=== PATIENT | male | born 1950 | race Caucasian/White ===

== ENCOUNTER 2018-08-03 10:52 | Inpatient (IN) | payer OTHER ==
--- NOTE | 2018-08-03 11:47 | ED ---
Lower Extremity - HPI Summary HPI Summary: Patient is a 68 y/o M w/ c/o left leg pain after falling from a six foot ladder. Per EMS, patient was 2 steps up from the ground. Patient reports that he was cutting some branches with a saw, tried to take a couple of steps up the ladder, leaned back too far and fell. EMS reports patient's left leg was externally rotated 90 degrees upon arrival. Patient arrived with left leg splinted, no open fracture. Leg is noted to be bruised and swollen. PMHx of stroke, DC is denied, patient is adopted. He denies the need for pain medication. Patient denies fever, chills, TORRES, ear pain, sore throat, blurred vision, double vision, neck pain, CP, SOB, ABD pain, back pain, dysuria, hematuria, blood in the stool, diarrhea, vomiting, anxiety and depression. On triage, pain is rated 7/10, nothing is noted to aggravate/alleviate Sx. Home medications and allergies are reviewed. - History of Current Complaint Chief Complaint: EDExtremityLower Stated Complaint: LT LEG INJURY Hx Obtained From: Patient Mechanism Of Injury: Fall From Height Of: - two ladder rungs off the ground Onset of Pain: Prior to Arrival Onset/Duration: Still Present Severity Currently: Severe - 7/10 Pain Intensity: 7 Pain Scale Used: 0-10 Numeric - 7/10 Timing: Constant Location: Is Discrete @ - left leg Associated Signs And Symptoms: Positive: Swelling, Bruising Aggravating Factor(s): Nothing Alleviating Factor(s): Nothing - Allergies/Home Medications Allergies/Adverse Reactions: Allergies Allergy/AdvReac Type Severity Reaction Status Date / Time No Known Allergies Allergy Verified 08/03/18 11:01 Home Medications: Home Medications NK [No Home Medications Reported] 08/03/18 [History Confirmed 08/03/18] PMH/Surg Hx/FS Hx/Imm Hx Cardiovascular History: Denies: Hx Myocardial Infarction Neurological History: Denies: Hx CVA Infectious Disease History: No Infectious Disease History: Denies: Traveled Outside the [place] in Last 30 Days - Family History Known Family History: Positive: Unknown - adopted - Social History Alcohol Use: Daily Substance Use Type: Reports: None Smoking Status (MU): Current Every Day Smoker Review of Systems Negative: Fever, Chills Positive: Other - NEGATIVE: double vision. Negative: Blurred Vision Negative: Sore Throat, Ear Ache Negative: Chest Pain Negative: Cough Negative: Abdominal Pain, Vomiting, Diarrhea Positive: other - NEGATIVE: blood in stool . Negative: dysuria, hematuria Positive: Edema - left leg , Other - left leg pain Positive: Bruising - left leg Negative: Headache Negative: Anxious, Depressed All Other Systems Reviewed And Are Negative: No Physical Exam - Summary Physical Exam Summary: Appearance: Alert, conversive, nontoxic appearing Skin: Warm, dry, no mottling, no rashes, no contusions HEENT: EOMI, PERRL, moist mucous membranes Neck: No masses on the neck, supple Respiratory: Clear to auscultation, breath sounds present, no rales, no rhonchi , no wheezes Cardiovascular: RRR, pulses are symmetrical in both lower and upper extremities Abdomen: Soft, non-tender Bowel Sounds: Present Musculoskeletal: No CVA tenderness, swelling at left lower leg, bruising to anterior ku, good pulses, good cap refill. inability to lift left leg, FROM at left ankle Neurological: A&Ox3, CN II-XII Intact, moving all extremities symmetrically Psychiatric: Normal affect and mood Triage Information Reviewed: Yes Vital Signs On Initial Exam: Initial Vitals Temp Pulse Resp BP Pulse Ox 97.5 F 59 20 144/82 98 08/03/18 10:56 08/03/18 10:56 08/03/18 10:56 08/03/18 10:56 08/03/18 10:56 Vital Signs Reviewed: Yes Diagnostics - Vital Signs Vital Signs Temp Pulse Resp BP Pulse Ox 08/03/18 10:56 97.5 F 59 20 144/82 98 - Laboratory Result Diagrams: 08/03/18 13:44 08/03/18 13:44 Lab Statement: Any lab studies that have been ordered have been reviewed, and results considered in the medical decision making process. - Radiology left ankle x-ray Radiology Interpretation Completed By: Radiologist Summary of Radiographic Findings: IMPRESSION: NO EVIDENCE FOR FRACTURE. THIS REPORT WAS REVIEWED BY ED PHYSICIAN. LEFT KNEE X-RAY Radiology Interpretation Completed By: Radiologist Summary of Radiographic Findings: IMPRESSION: 1. COMMINUTED DISPLACED INTRA- ARTICULAR FRACTURE OF THE PROXIMAL TIBIA. 2. OBLIQUE COMMINUTED SLIGHTLY DISPLACED FRACTURE OF THE PROXIMAL FIBULA. THIS REPORT WAS REVIEWED BY ED PHYSICIAN. LEFT FEMUR X-RAY Radiology Interpretation Completed By: Radiologist Summary of Radiographic Findings: IMPRESSION: No fracture of the left hip or pelvis is noted. THIS REPORT WAS REVIEWED BY ED PHYSICIAN. HIP/PELVIS X-RAY Radiology Interpretation Completed By: Radiologist Summary of Radiographic Findings: IMPRESSION: No fracture of the left hip or pelvis is noted. THIS REPORT WAS REVIEWED BY ED PHYSICIAN. PELVIS X-RAY Radiology Interpretation Completed By: Radiologist Summary of Radiographic Findings: IMPRESSION: No fracture of the pelvis is noted. THIS REPORT WAS REVIEWED BY ED PHYSICIAN. LLE x-ray Radiology Interpretation Completed By: Radiologist Summary of Radiographic Findings: IMPRESSION: COMMINUTED DISPLACED INTRA- ARTICULAR FRACTURE OF THE PROXIMAL TIBIA AND. OBLIQUE COMMINUTED DISPLACED FRACTURE OF THE PROXIMAL FIBULA PREVIOUSLY DESCRIBED. NO. ADDITIONAL FRACTURES ARE SEEN. THIS REPORT WAS REVIEWED BY ED PHYSICIAN. CXR Radiology Interpretation Completed By: Radiologist Summary of Radiographic Findings: cardiomegaly with no evidence of active cardiopulmonary disease, this report was reviewed by ED physician. - EKG 1310 Cardiac Rate: Bradycardia - rate of 53 BPM EKG Rhythm: Sinus Bradycardia Summary of EKG Findings: prolonged CT, prolonged QRS, normal QTC, nonspecific ST -T waves changes noted, depression in v5, v6 and lead 1 and avf. Re-Evaluation - Re-Evaluation First Eval Re-Evaluation Time: 12:52 Comment: Discussed results of x-rays with patient as well as need for surgery. is now present in ED. reports PMHx of COPD in patient. Patient and are from [place], they are agreeable with patient having surgery at [facility]. reports collar bone fracture and skull fracture years ago. Lower Extremity Course/Dx - Course Course Of Treatment: Patient is a 68 y/o M w/ c/o left leg pain after falling from a six foot ladder. Per EMS, patient was 2 steps up from the ground. Patient reports that he was cutting some branches with a saw, tried to take a couple of steps up the ladder, leaned back too far and fell. EMS reports patient 's left leg was externally rotated 90 degrees upon arrival. Patient arrived with left leg splinted, no open fracture. Leg is noted to be bruised and swollen. On physical exam, patient is noted to have swelling at left lower leg, bruising to anterior ku, good pulses, good cap refill. inability to lift left leg, FROM at left ankle. During ED course, patient received fluids and dilaudid 1 mg. UA negative. Labs showed glucose 120, calcium 8.5, INR 1.08, WBC 12.7, RBC 3.18. Multiple x-rays were done, LLE X-RAY, PER RADIOLOGIST, SHOWED COMMINUTED DISPLACED INTRA-ARTICULAR FRACTURE OF THE PROXIMAL TIBIA AND. OBLIQUE COMMINUTED DISPLACED FRACTURE OF THE PROXIMAL FIBULA PREVIOUSLY DESCRIBED. NO. ADDITIONAL FRACTURES ARE SEEN. No ankle, hip, pelvis fracture is noted on x-rays. CXR showed cardiomegaly with no evidence of active cardiopulmonary disease. EKG showed sinus bradycardia with rate of 53 BPM, prolonged CT, prolonged QRS, normal QTC, nonspecific ST-T waves changes noted, depression in v5, v6 and lead 1 and avf. 1252 - Discussed results of x-rays with patient as well as need for surgery. is now present in ED. reports PMHx of COPD in patient. Patient and are from [place], they are agreeable with patient having surgery at [facility]. reports collar bone fracture and skull fracture years ago. 1255 - Dr. Valladares, extension course counselor ortho, was attempted to be contacted, he is in surgery, will call back. 1338 - Discussed patient's case with Dr. Nova, Dr. Nova agrees to accept patient for admission. 1401 - Dr. Valladares called back. He notes that patient has a complicated fracture, he will see if any of his partners will take patient's case. 1407 - Dr. Valladares states that Dr. Sevilla will takes the patient's case and that patient should be placed on NPO after midnight. Posterior fiberglass splint placed on Lt LE by ANA Jackman. Dx of closed fracture of proximal end of tibia and fibia. - Diagnoses Provider Diagnoses: Closed fracture of proximal end of tibia and fibula - Physician Notifications Discussed Care Of Patient With: Ever Valladares Time Discussed With Above Provider: 12:55 Instructed by Provider To: Other - 1255 - Dr. Valladares, extension course counselor ortho, was attempted to be contacted, he is in surgery, will call back. 1338 - Discussed patient's case with Dr. Nova, Dr. Nova agrees to accept patient for admission. 1401 - Dr. Valladares called back. He notes that patient has a complicated fracture, he will see if any of his partners will take patient's case. 1407 - Dr. Valladares states that Dr. Sevilla will takes the patient's case and that patient should be placed on NPO after midnight. Discharge - Sign-Out/Discharge Documenting (check all that apply): Patient Departure - admit All imaging exams completed and their final reports reviewed: Yes - Discharge Plan Condition: Stable Disposition: ADMITTED TO [facility] - Billing Disposition and Condition Condition: STABLE Disposition: Admitted to [facility] - Attestation Statements Document Initiated by Scribe: Yes Documenting Scribe: Antonio Galvin Provider For Whom Efraín is Documenting (Include Credential): Jane Gale MD Scribe Attestation: Antonio Pérez , scribed for Jane Gale MD on 08/03/18 at 2032. Scribe Documentation Reviewed: Yes Provider Attestation: The documentation as recorded by the shilpiibAntonio perkins accurately reflects the service I personally performed and the decisions made by me, Jane Gale MD
--- NOTE | 2018-08-03 12:40 | RAD ---
INDICATION: Left ankle injury. TECHNIQUE: 3 views of the left ankle were obtained. FINDINGS: The bones are in normal alignment. No fracture is seen. Joint spaces appear maintained. IMPRESSION: NO EVIDENCE FOR FRACTURE.
--- NOTE | 2018-08-03 12:42 | RAD ---
Indication: Left leg pain and hip pain. 2 views of left hip, and 2 views of the left femur are reviewed. The left hip demonstrates no fracture. No other bone or joint abnormality is identified. The left femur demonstrates no fracture of the femur. The visualized pelvis is unremarkable. IMPRESSION: No fracture of the left hip or pelvis is noted.
--- NOTE | 2018-08-03 12:43 | RAD ---
Indication: Fall off ladder with lower extremity pain and deformity. 4 views of the pelvis including inlet and outlet views demonstrates sacroiliac joint to be intact. No fracture of the pelvis is noted. Sacral foramina are patent. IMPRESSION: No fracture of the pelvis is noted.
--- NOTE | 2018-08-03 12:43 | RAD ---
INDICATION: Left knee injury. TECHNIQUE: 2 views of the left knee were obtained. FINDINGS: There is diffuse soft tissue swelling. There is a moderate joint effusion present. There is a transverse comminuted intra-articular fracture of the tibial metaphysis with extension to the lateral articular surface. The fracture fragments are impacted and slightly distracted. There is also an oblique slightly displaced comminuted fracture of the proximal fibular metaphysis. IMPRESSION: 1. COMMINUTED DISPLACED INTRA-ARTICULAR FRACTURE OF THE PROXIMAL TIBIA. 2. OBLIQUE COMMINUTED SLIGHTLY DISPLACED FRACTURE OF THE PROXIMAL FIBULA.
--- NOTE | 2018-08-03 12:45 | RAD ---
INDICATION: Left lower leg injury. TECHNIQUE: 2 views of the left lower leg were obtained. FINDINGS: There is diffuse soft tissue swelling around the knee extending into the calf. Again note is made of a comminuted displaced intra-articular fracture of the proximal tibia and an oblique comminuted slightly displaced fracture of the proximal fibula. No additional fractures are seen. IMPRESSION: COMMINUTED DISPLACED INTRA-ARTICULAR FRACTURE OF THE PROXIMAL TIBIA AND OBLIQUE COMMINUTED DISPLACED FRACTURE OF THE PROXIMAL FIBULA PREVIOUSLY DESCRIBED. NO ADDITIONAL FRACTURES ARE SEEN.
--- NOTE | 2018-08-03 13:43 | RAD ---
Indication: Fall, chest pain. 2 views of the chest including dual energy PA view demonstrates no mediastinal shift. Mild cardiomegaly is noted. Lung friedman are clear. IMPRESSION: Cardiomegaly with no evidence of active cardiopulmonary disease.
[2018-08-03] MEDS ORDERED: HYDROmorphone INJ* 2 MG/ML CARPUJECT SYRINGE IV SLOW PU ONE (13:44)
[2018-08-03 13:56] LABS: Urine Appearance Clear; Urine Blood Negative (Negative); Urine Color Yellow; Urine Ketones Negative (Negative); Urine Protein Negative (Negative); Urine Specific Gravity 1.018 (1.010-1.030); Urine Urobilinogen Negative (Negative)
[2018-08-03] MEDS ORDERED: NS 0.9% 500 ML* 500 ML IV ONE (14:00)
[2018-08-03] MEDS ORDERED: HYDROmorphone INJ1* 1 MG/ML SYRINGE ONE (14:06)
[2018-08-03] MEDS ORDERED: PROCHLORPERAZINE INJ 5 MG/ML 2 ML VIAL IV PRN (14:11)
[2018-08-03] MEDS ORDERED: Acetaminophen TAB* 325 MG PO PRN (14:11)
[2018-08-03] MEDS ORDERED: NS 0.9% 1000 ML* 1,000 ML IV SCH (14:15)
[2018-08-03 14:16] LABS: ABS Basophils 0 10^3/ul (0-0.2); ABS Eosinophils 0.1 10^3/ul (0-0.6); ABS Lymphocytes 0.6 10^3/ul (1.0-4.8); ABS Monocytes 0.7 10^3/ul (0-0.8); ABS Neutrophils 11.3 10^3/ul (1.5-7.7); ABS Nucleated RBC 0 10^3/ul; Eosinophil % 0.7 % (0-6); Hematocrit 32 % (42-52); Hemoglobin 11.6 g/dl (14.0-18.0); Lymphocyte % 4.6 % (25-47); Mean Corpuscular HGB Conc 36 g/dl (31-36); Mean Corpuscular Hemoglobin 36 pg (27-31); Mean Corpuscular Volume 100 fL (80-94); Mean Platelet Volume 7.8 um3 (7.4-10.4); Nucleated Red Blood Cells % 0.1; Platelet Count 213 10^3/ul (150-450); Red Blood Count 3.18 10^6/ul (4.00-5.40); Red Cell Distribution Width 15 % (10.5-15); White Blood Count 12.7 10^3/ul (3.5-10.8)
[2018-08-03 14:25] LABS: INR 1.08 (0.77-1.02)
[2018-08-03 14:30] LABS: EGFR Non-African American 91.6 (>60)
--- NOTE | 2018-08-03 14:34 | ED ---
Progress - Progress Note Progress Note: posterior fiberglass splint placed on Lt LE - NV intact - pt tolerated well - assisted by EULALIA Friedman Re-Evaluation - Re-Evaluation First Eval Re-Evaluation Time: 12:52 Comment: Discussed results of x-rays with patient as well as need for surgery. is now present in ED. reports PMHx of COPD in patient. Patient and are from [place], they are agreeable with patient having surgery at [facility]. reports collar bone fracture and skull fracture years ago. Course/Dx - Course Course Of Treatment: Patient is a 68 y/o M w/ c/o left leg pain after falling from a six foot ladder. Per EMS, patient was 2 steps up from the ground. Patient reports that he was cutting some branches with a saw, tried to take a couple of steps up the ladder, leaned back too far and fell. EMS reports patient 's left leg was externally rotated 90 degrees upon arrival. Patient arrived with left leg splinted, no open fracture. Leg is noted to be bruised and swollen. On physical exam, patient is noted to have swelling at left lower leg, bruising to anterior ku, good pulses, good cap refill. inability to lift left leg, FROM at left ankle. Multiple x-rays were done, LLE X-RAY, PER RADIOLOGIST, SHOWED COMMINUTED DISPLACED INTRA-ARTICULAR FRACTURE OF THE PROXIMAL TIBIA AND. OBLIQUE COMMINUTED DISPLACED FRACTURE OF THE PROXIMAL FIBULA PREVIOUSLY DESCRIBED. NO. ADDITIONAL FRACTURES ARE SEEN. 1252 - Discussed results of x- rays with patient as well as need for surgery. is now present in ED. reports PMHx of COPD in patient. Patient and are from [place], they are agreeable with patient having surgery at [facility]. reports collar bone fracture and skull fracture years ago. - Provider Notifications Time Discussed With Above Provider: 12:55 Instructed by Provider To: Other - 1255 - Dr. Valladares, carbon blocks press operator ortho, was attempted to be contacted, he is in surgery, will call back. Discharge - Sign-Out/Discharge Documenting (check all that apply): Patient Departure - Discharge Plan Condition: Stable Disposition: ADMITTED TO [facility] Referrals: No Primary Care Phys,NOPCP [Primary Care Provider] - - Billing Disposition and Condition Condition: STABLE Disposition: Admitted to [facility]
--- NOTE | 2018-08-03 15:03 | RAD ---
Indication: LEFT tibial plateau fracture. Fall from ladder. Comparison: Radiographs of the same date. Technique: Noncontrast CT LEFT knee. Multiplanar reformation. Report: Large joint effusion with fat fluid level. Small volume of fluid at the semimembranosus bursa. Negative for dislocation. Bone density appears decreased throughout. Comminuted impacted tibial plateau fracture with dominant oblique axial, coronal, and lateral para midline sagittal fracture planes. Up to 0.8 cm transverse articular surface discontinuity at the lateral joint compartment posteriorly. Up to approximate 0.3 cm impaction of the lateral tibial plateau subchondral bone. Markedly comminuted fracture of the head and neck of the fibula with segmental impaction. Extension of the fibula and tibial plateau fractures to the proximal tibiofibular articulation. Diffuse soft tissue edema most marked anteriorly. Osteoarthritis most marked at the medial joint compartment with moderately severe joint space narrowing, partial flattening of the articular surfaces, and associated subchondral sclerosis and cystic change. IMPRESSION: #. Comminuted impacted tibial plateau and proximal fibular fractures with associated lipohemarthrosis as described. #. Predisposing decreased bone density. #. Osteoarthritis.
[2018-08-03] MEDS: Morphine VIAL* 4 MG/ML VIAL (1 ml vial) IV PRN ×2 (15:55→21:38)
--- NOTE | 2018-08-03 17:18 | HP ---
CC: Dr. Martin Morel, phone # [phone]; Dr. Valladares * HISTORY AND PHYSICAL: DATE OF ADMISSION: 08/03/18 TIME OF EVALUATION: 1:45 p.m. PRIMARY CARE PROVIDER: Dr. Martin Morel, [place], [place]. Phone number is . CONSULTING ORTHOPEDIST: Dr. Valladares. CHIEF COMPLAINT: "I fell." HISTORY OF PRESENT ILLNESS: Mr. Jaramillo is a 68-year-old male with a past medical history of COPD who presented to the emergency room, brought in by EMS after sustaining a fall. 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 He thought that he was at a low enough distance that he could just land on his feet, but he states that immediately after landing, he developed severe left lower extremity pain. As per EMS, the patient's left leg was externally rotated at 90 degrees upon arrival. The patient denies chest pain, palpitations, shortness of breath, or any other symptoms preceding his fall. He states that the only issue was that he lost his balance when the Sawzall kicked back. The patient was a smoker until last week, but he states that he has quit. As described, he denies any chest pain. He is physically active doing his work with no complaints. PAST MEDICAL HISTORY: COPD. MEDICATIONS: None. ALLERGIES: No known drug allergies. FAMILY HISTORY: Unknown as the patient is adopted. 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 He used to smoke 10 small cigars a day since he was 26. He states that he drinks two 24-ounce beers every night , but denies ever having issues with withdrawal on the days that he did not drink. There is no drug use. Surrogate decision maker is his , Jennifer Jaramillo, phone number [phone]. REVIEW OF SYSTEMS: A 14-point review of systems was performed and all the pertinent negative and positive findings are in the HPI. PHYSICAL EXAMINATION GENERAL: The patient is a pleasant gentleman lying in the ED stretcher, not in acute distress. VITAL SIGNS: Temperature 97.5, heart rate 59, respiratory rate is 16, oxygen saturation 99% on room air, blood pressure is 112/65. HEENT: Pupils are equal. Moist mucous membranes. CHEST: Breath sounds bilaterally with no added sounds. CVS: Normal S1 and S2. Regular rate and rhythm. ABDOMEN: Soft. Bowel sounds are present. EXTREMITIES: There is deformity and edema to the left lower extremity. Sensation is intact. Good pulses and good capillary refill bilaterally. NEURO: He is alert and oriented x3. Able to move all 4 extremities. LABORATORY AND IMAGING DATA: The patient's urinalysis was negative. Other laboratory tests are pending at the time of this dictation. An EKG done on 08/03/18 at 1:09 p.m. showed sinus bradycardia at 53 beats per minute with a left bundle-branch block. There is no prior EKG to compare. Pelvis x-ray showed no fracture of the pelvis. There is no fracture of the left hip. Femur x-ray, no fracture of the left femur. Knee x-ray showed the comminuted displaced intraarticular fracture of the proximal left tibia with an oblique comminuted slightly displaced fracture of the proximal fibula. Ankle x- ray showed no evidence for fracture. Chest x-ray showed cardiomegaly with no evidence of active cardiopulmonary disease. ASSESSMENT AND PLAN: Mr. Jaramillo is a 68-year-old male with a past medical history of chronic obstructive pulmonary disease, tobacco abuse who presented to the emergency room, brought in by EMS after a mechanical fall at work, found to have left tib-fib fracture. 1. Left tib-fib fracture. Orthopedics consultation was requested with Dr. Valladares who is in the OR at this moment, so we will wait for his recommendations. If the patient does need surgical treatment, we will have to obtain records from his primary care provider, especially a prior EKG. The patient does not have complaints of chest pain, palpitations, or shortness of breath, but his EKG does show a left bundle-branch block of unknown age. His chest x-ray also shows cardiomegaly. At the time of the dictation, his laboratory tests are pending. We will also obtain records from his Primary care provider, so that information will need to be analyzed before we can say the patient is optimized for surgery. 2. Chronic obstructive pulmonary disease appears to be stable at this time. 3. DVT prophylaxis. The patient has a score of 3 on the DVT Prophylaxis Risk Assessment Guide and I am not going to give him any subcutaneous heparin for now until Orthopedics sees him, as he may need surgical repair but he is going to have SCDs on the right leg. 4. Code status is full. TIME SPENT: Approximately 45 minutes were spent with patient interview, medical records review, physical examination to complete the admission; more than half of this time was spent [id number] with the patient and coordination of care. [id number]/CPS #: [id number] DEVON
[2018-08-03] MEDS: Heparin VIAL(*) 5000 UNITS/ML VIAL (FIVE THOUSAND) SUBCUT SCH ×2 (18:28→21:28)
[2018-08-03] MEDS: Docusate CAP* 100 MG PO SCH (21:38)
--- NOTE | 2018-08-03 23:26 | CONS ---
CONSULTATION REPORT: DATE OF CONSULT: 08/03/18 ATTENDING ORTHOPEDIC PROVIDER: Dr. Daniele Burch. CHIEF COMPLAINT: Left leg pain. HISTORY OF PRESENT ILLNESS: Pavan is a 68-year-old male, who presented to [facility] Emergency Room today after sustaining a fall while at work , off the second rung on the ladder landing on his left lower extremity. 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 He was working at [employer] on this occasion. He states that he was using a [place], which jerked and he stepped back thinking the floor was much closer than it was, then he fell to the ground. Immediately, he had pain of the left lower extremity and was unable to ambulate. The patient states that he currently does not have any pain of the left lower extremity while he is lying, resting in bed. He states that he has no other injury from this fall. Per ER report there was no open fracture and a long leg posterior splint was placed. He has had falls in the past while at work under similar circumstance on 2 other occasions falling off a scaffolding, resulting in fractures of his left clavicle and skull fracture which required placement of a plate. The patient is unsure if he had a brain bleed or traumatic brain injury at this time, but he has no residual effects. The patient denies any feeling of chest pain, shortness of breath, dizziness prior to fall.He has no past medical history of stroke, heart attack, blood clot, blood transfusion, HIV, or hepatitis. PAST MEDICAL HISTORY: COPD for which he does not use any medication for treatment and is asymptomatic. MEDICATIONS: Does not take any medication at home. ALLERGIES: No known drug allergies. FAMILY HISTORY: Adopted. 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 His current job is at [employer]. The patient drinks alcohol daily for a total of 48 to 72 ounces of beer per day. He states that he has stopped drinking in the past without having any withdrawal symptoms. He does smoke every day 6 to 8 cigarillos, though none in the past week. He does not use any illicit drugs. He lives at home with his , Jennifer, without any assistance at home. He does not use any assistive device to walk. REVIEW OF SYSTEMS: General: Negative for fever, chills, recent illness. HEENT : No changes in vision, headache, or head trauma on this occasion. He does have a history of head trauma after falling off a scaffolding with no residual effects. Cardiac: No chest pain. No irregular beats. No history of heart attack. Respiratory: No shortness of breath. No cough. Does have a history of COPD. Abdomen: No abdominal pain. No vomiting, diarrhea, nausea, or constipation. : No dysuria. No difficulty with urinary. Musculoskeletal: Positive for left lower extremity pain and known tibial plateau and fibular fracture. Neuro: Sensation intact throughout all extremities without numbness or paraesthesias. Heme: No history of blood clot, easy bleeding, or easy brushing. Skin: No rash or lesions. PHYSICAL EXAM: Vital Signs: Temperature 98.3, pulse rate 57, respiratory rate 16, oxygen saturation 100, blood pressure 102/61. The patient is well appearing , in no acute distress. Alert and oriented to person, place, and time, carries on an appropriate conversation. HEENT: Head is normocephalic, he does have a surgical scar just anterior to his ear over his right temporal lobe. Extraocular movements intact. Slight yellow discoloration of eyes. Moist mucous membranes. Poor dentition with many absent teeth. Cardiac: S1, S2. Regular rate and rhythm. Respiratory: Clear to auscultation bilaterally. No wheezes, rales, or rhonchi. Abdomen: Bowel sounds normoactive in all 4 quadrants. Nontender to palpation. No guarding. No rigidity. Upper Extremities: With skin envelope intact. No obvious deformity. Nontender to palpation. Active flexion and extension of the digits, wrists, and elbows without any associated pain. Shoulders with nonpainful active forward flexion and abduction. Left Lower Extremity: He has a long leg posterior splint in place. There is no obvious rotation about the extremity. His thigh and calf remain easily compressible without tenderness to palpation. His toes are exposed and able flex and extend MTPs. DP2+ Capillary refill is less than 2 seconds distally. His exposed thigh is soft, nontender. Passive flexion and extension at the hip without any pain. Logroll of the hip is nonpainful. Right lower extremity: Skin envelope is intact. No obvious deformity. Nontender to palpation. Active flexion and extension of digits, ankle, knee, and hip without any pain. Negative logroll. Neuro: Sensation is intact to light touch distally in left lower extremity including plantar,dorsal, medial, lateral and 1st webspace of foot. Sensation intact to light touch throughout right lower extremity and bilateral upper extremities. The patient is alert and oriented to conversation. Skin: There is no obvious skin breakdown. There are no lacerations or lesions noted. DIAGNOSTIC STUDIES/LAB DATA: CT of the left lower extremity. Impression per Radiology: Comminuted-impacted tibial plateau and proximal fibular fractures with associated lipohemarthrosis present, predisposing decreased bone density, osteoarthritis. LLE xray: IMPRESSION: COMMINUTED DISPLACED INTRA-ARTICULAR FRACTURE OF THE PROXIMAL TIBIA AND OBLIQUE COMMINUTED DISPLACED FRACTURE OF THE PROXIMAL FIBULA PREVIOUSLY DESCRIBED. NO ADDITIONAL FRACTURES. HIP LEFT 2 VIEWS AND PELVIS: IMPRESSION: No fracture of the left hip or pelvis is noted. ANKLE LEFT 3+VWS IMPRESSION: NO EVIDENCE FOR FRACTURE. White blood cell count 12.7, hemoglobin 11.6, hematocrit 32. INR 1.08. Sodium 137, potassium 3.6. ASSESSMENT: Left tibial plateau and proximal fibula fracture. PLAN/RECOMMENDATIONS: The patient will be nonweightbearing on his left lower extremity. Keep long leg posterior splint in place. Ensure edges of splint are all well padded to avoid any skin breakdown, padding was reinforced today. The patient will be brought to the OR for Ex-Fix vs ORIF with Dr. Burch; we anticipate either 08/05/18. He will be on chemical and mechanical DVT prophylaxis until midnight before his surgery. At midnight preceding his surgery, he will also need to be n.p.o. Elevate and ice the LLE. [facility] [id number]/[facility] #: [id number] [facility]
[2018-08-04] MEDS: Morphine VIAL* 4 MG/ML VIAL (1 ml vial) IV PRN ×4 (02:02→21:12)
[2018-08-04] MEDS: Heparin VIAL(*) 5000 UNITS/ML VIAL (FIVE THOUSAND) SUBCUT SCH ×3 (06:09→21:15)
[2018-08-04 07:16] LABS: ABS Basophils 0 10^3/ul (0-0.2); ABS Eosinophils 0.2 10^3/ul (0-0.6); ABS Lymphocytes 0.7 10^3/ul (1.0-4.8); ABS Monocytes 0.7 10^3/ul (0-0.8); ABS Neutrophils 3.4 10^3/ul (1.5-7.7); ABS Nucleated RBC 0 10^3/ul; Eosinophil % 4.3 % (0-6); Hematocrit 27 % (42-52); Hemoglobin 9.9 g/dl (14.0-18.0); Lymphocyte % 13.7 % (25-47); Mean Corpuscular HGB Conc 37 g/dl (31-36); Mean Corpuscular Hemoglobin 37 pg (27-31); Mean Corpuscular Volume 99 fL (80-94); Mean Platelet Volume 7.7 um3 (7.4-10.4); Nucleated Red Blood Cells % 0; Platelet Count 160 10^3/ul (150-450); Red Cell Distribution Width 14 % (10.5-15)
--- NOTE | 2018-08-04 07:52 | CONSULT ---
Consult Consult: Please see Acacia Ball's note for full H&P details. I saw Pavan this morning. He sustained a fall off of a ladder, about 6 feet, yesterday at work. He sustained an injury to his left knee. He denies pain or injury anywhere else. He reports that he had some mild pain in his knee from arthritis at baseline, but did not need any assistive devices for ambulation. he does have a history of a right total knee replacement. He was admitted to the hospitalist service yesterday and placed into a long-leg splint. He reports the pain is at the left knee and is daily, mild to moderate, sharp. He denies any numbness or tingling. He denies any back pain. He does smoke cigarettes. He is not diabetic. No history of VTE. On exam, he is in a long-leg splint. I removed the overwrap around the knee. The skin is intact. There is a moderate amount of swelling at the proximal tibia and knee. He does have some tenderness about the proximal tibia. He is able to flex and extend his ankle and toes without any pain. Sensation is intact to light touch throughout the foot. He has strong palpable DP pulses and foot is warm and well perfused with good capillary refill. He is moving his other 3 extremities normally without any pain. No obvious deformity in those extremities. His imaging shows a displaced, comminuted, bicondylar tibial plateau fracture. WBC 5 HCT 27 Plt 160 INR 1.08 Cr 0.83 I discussed the diagnosis and prognosis with Pavan at length this morning. I explained that these are very difficult injuries. I didn't recommend surgical treatment to reduce the fractures and internally fixate them. We discussed the risks/benefits and pros/cons of both nonoperative and operative treatment options at length. He would like to move forward with surgery. I did explain that he is quite swollen, so we may have to externally fixate him and perform the ORIF in a delayed fashion. We will plan on surgery tomorrow morning for either an ORIF versus ex-fix. For now, he should remain nonweightbearing in the left lower extremity. Strict elevation of the left lower extremity to help improve the swelling. I do recommend icing of the knee to also help with swelling. He should be n.p.o. at midnight tonight for the OR tomorrow. I recommend a type and crossmatch for 2 units of blood. Daniele Burch MD
[2018-08-04 07:55] LABS: EGFR Non-African American 109.7 (>60)
[2018-08-04] MEDS: Docusate CAP* 100 MG PO SCH ×2 (08:30→21:16)
[2018-08-04] MEDS ORDERED: Pneumococcal *Vac Polyvalent 0.5 ML VIAL IM ONE (10:00)
[2018-08-04] MEDS ORDERED: Thiamine IV* 100 MG/ML 2 ML VIAL IM ONE (12:14)
[2018-08-04] MEDS ORDERED: LORazepam TAB(*) 1 MG PO SCH (13:00)
--- NOTE | 2018-08-04 14:43 | PN ---
Subjective Date of Service: 08/04/18 Interval History: Patient seen and examined. States pain in LLE when he tenses his muscles or uses the trapeze to pull himself up in bed. Denies fever, headache or fatigue. No chest pain, no SOB, no further complaints. Discussed medical optimization for surgery extensively. Pending records from [facility] Objective Active Medications: Acetaminophen (Tylenol Tab*) 650 mg PO Q6H PRN PRN Reason: pain/fever Last Admin: 08/03/18 21:38 Dose: 650 mg Docusate Sodium (Colace Cap*) 100 mg PO BID [facility] Last Admin: 08/04/18 08:30 Dose: 100 mg Folic Acid (Folvite Tab*) 1 mg PO DAILY [facility] Heparin Sodium (Porcine) (Heparin Vial(*)) 5,000 units SUBCUT Q8HR [facility] Stop: 08/04/18 23:59 Last Admin: 08/04/18 06:09 Dose: 5,000 units Lorazepam (Ativan Tab(*)) 0 - 6 mg PO .[facility] PROTOCOL [facility]; Protocol Morphine Sulfate (Morphine Vial*) 4 mg IV Q4H PRN PRN Reason: PAIN Last Admin: 08/04/18 13:53 Dose: 4 mg Multivitamins/Minerals (Theragran/Minerals Tab*) 1 tab PO DAILY [facility] Prochlorperazine Edisylate (Compazine Inj*) 5 mg IV Q6H PRN PRN Reason: NAUSEA/VOMITING Thiamine HCl (Vitamin B-1 Tab*) 100 mg PO DAILY [facility] Vital Signs - 8 hr 08/04/18 08/04/18 08/04/18 07:17 08:00 08:29 Temperature 99.1 F Pulse Rate 77 Respiratory 16 18 18 Rate Blood Pressure 113/65 (mmHg) O2 Sat by Pulse 99 Oximetry 08/04/18 13:53 Temperature Pulse Rate Respiratory 18 Rate Blood Pressure (mmHg) O2 Sat by Pulse Oximetry Oxygen Devices in Use Now: None Appearance: Alert, NAD Eyes: No Scleral Icterus, PERRLA Ears/Nose/Mouth/Throat: Mucous Membranes Moist, - - poor dentition Neck: NL Appearance and Movements; NL JVP, Trachea Midline Respiratory: Symmetrical Chest Expansion and Respiratory Effort, Clear to Auscultation Cardiovascular: NL Sounds; No Murmurs; No JVD, RRR, No Edema Abdominal: NL Sounds; No Tenderness; No Distention Extremities: No Clubbing, Cyanosis, - - edema diffuse LLE, distal pulses intact Neurological: Alert and Oriented x 3 Nutrition: Taking PO's Result Diagrams: 08/04/18 06:43 08/04/18 06:43 Diagnostic Imaging: Patient Name: MISBAH TOMLINSON Medical Record#: [id number] Ordering Physician: Jane Gale MD Acct.#: [id number] : 1950 Age: 68 Sex: M Location: EMERGENCY DEPARTMENT Exam Date: 08/03/18 1140 ADM Status: REG ER Order Information: KNEE LEFT 1-2 VWS Accession Number: [id number] CPT: 32426 INDICATION: Left knee injury. TECHNIQUE: 2 views of the left knee were obtained. FINDINGS: There is diffuse soft tissue swelling. There is a moderate joint effusion present. There is a transverse comminuted intra-articular fracture of the tibial metaphysis with extension to the lateral articular surface. The fracture fragments are impacted and slightly distracted. There is also an oblique slightly displaced comminuted fracture of the proximal fibular metaphysis. IMPRESSION: 1. COMMINUTED DISPLACED INTRA-ARTICULAR FRACTURE OF THE PROXIMAL TIBIA. 2. OBLIQUE COMMINUTED SLIGHTLY DISPLACED FRACTURE OF THE PROXIMAL FIBULA. <Electronically signed by Kyle De Santiago MD in OV> 08/03/18 1239 Dictated By: Kyle De Santiago MD Dictated Date/Time: 08/03/18 1239 Transcribed Date/Time: 08/03/18 1237 Copy to: Assess/Plan/Problems-Billing Assessment: This is a 68 year old male with no significant reported medical history that presented to the ED after falling off a ladder at work and sustaining a left comminuted tib-fib fracture. - Patient Problems (1) Tibia/fibula fracture Code(s): S82.209A - UNSP FRACTURE OF SHAFT OF UNSP TIBIA, INIT FOR CLOS FX; S82.409A - UNSP FRACTURE OF SHAFT OF UNSP FIBULA, INIT FOR CLOS FX SNOMED Code (s): 533716878 Comment: - Orthopedics following - Plan for OR tomorrow if optimized today - Pain control, NWB, elevate extremity (2) EKG abnormality Code(s): R94.31 - ABNORMAL ELECTROCARDIOGRAM [ECG] [EKG] SNOMED Code(s): 556668689 Comment: - Pending records from cardiac workup in May prior to his recent RTKA - Per patient, he was told he had "slow heart rate" but nothing abnormal - Current EKG with potential ischemic changes in the lateral leads, but patient reports no history of chest pain or dyspnea - Discussed with Dr. Ibrahim who with see the patient and evaluate, recommends echo today and will evaluate records from previous facility - Barring any new findings from a cardiac perspective, patient should still be able to undergo his procedure tomorrow. He has no history of infarction, no Q wave and no current or recent chest pain, which would place his RCRI score at 0.4% for risk of major cardiac event. Also he recently had knee replacement with no post-op complications. However, we will defer to cardiology's recommendations after evaluating ECHO, EKGs and previous records. (3) Alcohol use Code(s): Z78.9 - OTHER SPECIFIED HEALTH STATUS SNOMED Code(s): 243095774 Comment: - Per patient, he drinks 2, 24 ounce beers daily, per this may be minimized - Will place on WA protocol and monitor for detox (4) DVT prophylaxis Code(s): HIL2670 - SNOMED Code(s): 500434833 Comment: - HSQ (5) Full code status Code(s): Z78.9 - OTHER SPECIFIED HEALTH STATUS SNOMED Code(s): 300263513 Status and Disposition: Inpatient. Coordinated with Dr. Ibrahim and [facility].
[2018-08-04] MEDS ORDERED: Perflutren Lipid Microsphere* 3 ML VIAL ONE (14:58)
--- NOTE | 2018-08-04 16:38 | ECHO ---
Patient: MISBAH EDMONDS [facility] Rec#: [id number] : 1950 Date: 08/04/2018 Age: 68y Height: 178 cm / 70.1 in Weight: 78.5 kg / 173.0 lbs Sex: M BSA: 2 Room#: 339 Admit Date#: 08/03/2018 Type: Inpatient Referring: Tameka Miranda Reading: Clint Ibrahim MD Control Officer: Lili Echeverria RN RDCS Transthoracic Echocardiogram Indication: Abnormal EKG BP: 113/65 HR: 68 Rhythm: NSR Findings History: COPD, cigar smoker Technical Comments: The study is technically limited due to poor acoustic windows. The study is technically limited due to the patient's history of COPD. Left Ventricle: The left ventricular chamber size is normal. There is increased basal septal hypertrophy noted without evidence of an increased gradient across the left ventricular outflow tract. Global left ventricular wall motion and contractility are within normal limits. There is normal left ventricular systolic function. The estimated ejection fraction is 55-60%. There is a left ventricular septal wall motion abnormality observed, possibly due to the presence of a left bundle branch block. The assessment of diastolic function is non-diagnostic. Left Atrium: The left atrial chamber size is normal. Right Ventricle: The right ventricle is not well visualized. The right ventricular cavity size is normal. The right ventricular global systolic function is normal. Right Atrium: The right atrium is not well visualized. Aortic Valve: The aortic valve is trileaflet. The aortic valve leaflets are mildly thickened. There is no evidence of aortic regurgitation. There is no evidence of aortic stenosis. Mitral Valve: The mitral valve leaflets are mildly thickened. There is a trace of mitral regurgitation. There is no evidence of mitral stenosis. Tricuspid Valve: The tricuspid valve leaflets are normal. There is no evidence of tricuspid valve regurgitation. There is no tricuspid stenosis. Pulmonic Valve: The pulmonic valve appears normal. There is no evidence of pulmonic regurgitation. There is no pulmonic stenosis. Pericardium: There is no significant pericardial effusion. Aorta: There is no dilatation of the ascending aorta. There is no dilatation of the aortic arch. There is no dilation of the aortic root. Pulmonary Artery: The main pulmonary artery appears normal. Venous: The inferior vena cava appears normal in size. There is a greater than 50% respiratory change in the inferior vena cava dimension. Contrast: Definity was used to optimize study. A total of 3 ml of diluted Definity was given IV. Summary: There was not any prior study for comparison. Conclusions Global left ventricular wall motion and contractility are within normal limits. The estimated ejection fraction is 55-60%. There is a left ventricular septal wall motion abnormality observed, possibly due to the presence of a left bundle branch block. There is increased basal septal hypertrophy noted without evidence of an increased gradient across the left ventricular outflow tract. There is no evidence of aortic stenosis. There is a trace of mitral regurgitation. There is no evidence of tricuspid valve regurgitation. There is no significant pericardial effusion. Measurements Name Value Normal Range IVSd (2D) 1.2 cm (0.6 - 1) LVPWd (2D) 0.9 cm (0.6 - 1) LVIDd (2D) 4.6 cm (3.6 - 5.4) Aortic Annulus 2.4 cm (1.4 - 2.6) Ao root diameter (2D) 3.4 cm (2.1 - 3.5) Ascending Ao 3.4 cm (2.1 - 3.4) Aortic arch 2.7 cm (1.8 - 3.4) LA dimension (AP) 2D 3.6 cm (2.3 - 3.8) LAd ISD 4CH 4.8 cm (2.9 - 5.3) LA ISD 4CH W 4.3 cm (2.5 - 4.5) Name Value Normal Range LA ESV BP (A/L) index 24 ml/m2 - Name Value Normal Range MV E-wave Vmax 0.78 m/sec - MV deceleration time 243 msec - MV A-wave Vmax 0.59 m/sec - MV E:A ratio 1.3 ratio - LV lateral e' Vmax 0.13 m/sec - LV E:e' lateral ratio 6 ratio - Name Value Normal Range AV Vmax 1.5 m/sec - AV VTI 28.2 cm - AV peak gradient 9 mmHg - AV mean gradient 5 mmHg - LVOT Vmax 1.1 m/sec - LVOT VTI 21.4 cm - LVOT peak gradient 5 mmHg - LVOT mean gradient 3 mmHg - CHITO Vmax 0.99 m/sec - Name Value Normal Range IVC diameter 1.4 cm - Name Value Normal Range PV Vmax 1 m/sec -
--- NOTE | 2018-08-04 21:07 | CONS ---
CC: Dr. Martin Morel, [place], [place]; Dr. Valladares * CARDIOLOGY CONSULTATION: DATE OF CONSULT: 08/04/18 INDICATION FOR CONSULT: Leg fracture, abnormal EKG. 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 He is going to the operating room tomorrow for pinning of his leg fracture. The patient's EKG today demonstrates normal sinus rhythm with intraventricular conduction delay and T-wave flattening. In speaking with the patient, I cannot elicit any cardiac symptoms. The patient is very active for a 68-year-old. 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 No orthopnea or PND. No palpitations. No lightheadedness, dizziness, or syncope. The patient had a knee replacement surgery this past summer. At that time, an EKG was done in [place] on 04/28/18, which showed the exact same EKG abnormalities. At that time, a Cardiology evaluation was reportedly unremarkable. The patient underwent surgery without difficulty. PAST MEDICAL HISTORY: Significant only for COPD. MEDICATIONS: None. ALLERGIES: None. 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 He does smoke cigars. He drinks 2 to 3 beers a day. He lives with his . REVIEW OF SYSTEMS: Negative for fevers and chills. Negative for changes in his bowel or bladder habits. Negative for change in weight. Other 12-point review is unremarkable. PHYSICAL EXAM: Height is 5 feet 10 inches, weight is 137 pounds, temperature 98.5, heart rate is 65, blood pressure 116/71, respiratory rate is 16, oxygen saturation 98% on room air. Sclerae anicteric. Oropharynx is pink without erythema. Carotids are 2+ without bruits. JVD is normal. Thyroid is normal. Cardiac Exam: S1, S2 without any murmurs, rubs, or gallops. Lungs are clear to auscultation bilaterally. There is no dullness to percussion. Abdomen is soft , nontender, nondistended with normoactive bowel sounds. Extremities show no edema. He does have a large cast on his left leg. The patient is awake, alert , and oriented. He moves his upper extremities equally. LABORATORY DATA: CBC: White count 5, hemoglobin 10, hematocrit 27, platelet count 160. Chemistries within normal limits. IMPRESSION AND PLAN: This is a 68-year-old gentleman, who sustained a leg fracture after a fall at work, who came to the hospital. He is scheduled to go to the operating room tomorrow. His EKG is abnormal as described above, although there is no change from his EKG in April. The patient's echocardiogram shows normal LV size with systolic function and no significant valvular abnormalities. For now, I think the patient can proceed to the operating room. I think the patient is at low risk for cardiovascular complications. I do not think any medication changes are necessary. Thank you very much for allowing me to participate in the care of this patient. [id number]/[facility] #: [id number] DEVON
[2018-08-05] MEDS: Morphine VIAL* 4 MG/ML VIAL (1 ml vial) IV PRN (03:23)
[2018-08-05 06:16] LABS: ABS Basophils 0 10^3/ul (0-0.2); ABS Eosinophils 0.2 10^3/ul (0-0.6); ABS Lymphocytes 0.8 10^3/ul (1.0-4.8); ABS Monocytes 0.6 10^3/ul (0-0.8); ABS Neutrophils 3.9 10^3/ul (1.5-7.7); ABS Nucleated RBC 0 10^3/ul; Eosinophil % 3.7 % (0-6); Hematocrit 25 % (42-52); Hemoglobin 9.6 g/dl (14.0-18.0); Lymphocyte % 13.7 % (25-47); Mean Corpuscular HGB Conc 38 g/dl (31-36); Mean Corpuscular Hemoglobin 37 pg (27-31); Mean Corpuscular Volume 98 fL (80-94); Mean Platelet Volume 7.9 um3 (7.4-10.4); Nucleated Red Blood Cells % 0.1; Platelet Count 156 10^3/ul (150-450); Red Blood Count 2.58 10^6/ul (4.00-5.40); Red Cell Distribution Width 15 % (10.5-15); White Blood Count 5.6 10^3/ul (3.5-10.8)
[2018-08-05 06:20] LABS: INR 1.06 (0.77-1.02)
[2018-08-05 06:29] LABS: EGFR Non-African American 115.3 (>60)
[2018-08-05] MEDS ORDERED: Lidocaine 2% PF * 5 ML VIAL ONE (07:00)
[2018-08-05] MEDS ORDERED: Propofol* 10 MG/ML 20 ML BTL IV PUSH ONE (07:00)
[2018-08-05] MEDS ORDERED: Ketorolac INJ* 30 MG/ML 1 ML VIAL ONE (07:00)
[2018-08-05] MEDS ORDERED: Dexamethasone IV* 4 MG/ML 1 ML (4 MG) ONE (07:00)
[2018-08-05] MEDS ORDERED: Ondansetron INJ* 2 MG/ML VIAL ONE (07:00)
[2018-08-05] MEDS ORDERED: Midazolam* 1 MG/ML 5 ML VIAL (5 MG) ONE (07:01)
[2018-08-05] MEDS ORDERED: KETAMINE HCL* 50 MG/ML 10 ML VIAL ONE (07:01)
[2018-08-05] MEDS ORDERED: fentaNYL* 50 MCG/ML 5 ML VIAL (250 MCG VIAL) ONE (07:01)
[2018-08-05] MEDS ORDERED: Bupivacaine 0.25% SDV* 30 ML ONE (07:09)
[2018-08-05] MEDS ORDERED: ceFAZolin 2 GM PREMIX in ORs 2 GM/50 ML BAG IVPB ONE (07:12)
[2018-08-05] MEDS ORDERED: Naloxone* 0.4 MG/ML 1 ML VIAL IV PRN (08:10)
[2018-08-05] MEDS ORDERED: fentaNYL* 50 MCG/ML 2 ML VIAL (100 MCG VIAL) IV PRN (08:10)
[2018-08-05] MEDS ORDERED: Ondansetron INJ* 2 MG/ML VIAL IV PRN (08:10)
--- NOTE | 2018-08-05 08:58 | RAD ---
CPT II Codes: G9500 INDICATION: Left tibial plateau fracture. Fluoroscopic services provided for referring physician. 6 spot images demonstrates intraoperative control films for repair of the tibial plateau fracture. IMPRESSION: Fluoroscopic services provided for referring physician.
--- NOTE | 2018-08-05 09:50 | OP ---
Operative Report - Blank - Operative Report Date of Operation: 08/05/18 Note: PATIENT: Pavan Jaramillo DATE OF : 1950 DATE OF SURGERY: 08/05/2018 SURGEON: Daniele Burch MD ZOOKEEPER: ANA Morel, whos assistance was necessary for positioning, traction, and help with instrumentation. ANESTHESIOLOGIST: Dr. Srivastava PREOPERATIVE DIAGNOSIS: Left bicondylar tibial plateau fracture POSTOPERATIVE DIAGNOSIS: Left bicondylar tibial plateau fracture OPERATION: Placement of external fixator for a left bicondylar tibial plateau fracture ANESTHESIA: GETA IMPLANTS: Synthes external fixator TOURNIQUET TIME: none SPECIMENS: none ESTIMATED BLOOD LOSS: minimal COMPLICATIONS: none STATUS: Stable from the operating room to the recovery room and then to the hospital floor. INDICATIONS FOR PROCEDURE: Pavan sustained a closed, displaced left bicondylar tibial plateau fracture. He is quite swollen so we discussed placement of an ex-fix and staging his ORIF once swelling improves. Both operative and non operative treatment alternatives were reviewed. Further, the nature and risks of surgery were reviewed in careful detail. Our discussions regarding the risks of surgery included, but were not limited to, infection, wound problems, nerve injury, neuroma, RSD, persistent symptoms, blood clot, failure of the surgery, need for further surgery, compartment syndrome, and even the remote chance of catastrophic complication, including loss of limb or . DESCRIPTION OF PROCEDURE: The patient was seen in the preoperative holding unit and informed written consent was obtained. The appropriate extremity was marked. The patient was then brought to the operating room and carefully positioned on the operating room table. Anesthesia was induced. All bony prominences were padded with great care. A chlorhexidine based pre-scrub was performed followed by a chloraprep prep and drape in standard sterile fashion. A surgical safety pause was then conducted in which we confirmed the appropriate patient, extremity, planned procedure, availability of equipment, indication and administration of prophylactic antibiotics, and DVT prophylaxis in the form of a compression boot on the non-surgical extremity. I made two stab incisions at the anterolateral thigh. I used a straight clamp to bluntly dissect down to the femur. I then predrilled two holes for the external fixation pins. Two partially-threaded external fixation pins were then screwed into the femur. These had excellent purchase. Fluoroscopy was used to confirm placement. I then made two stab incisions at the anterior leg. I used a straight clamp to bluntly dissect down to the tibia. I then predrilled two holes for the external fixation pins. Two partially-threaded external fixation pins were then screwed into the tibia. These had excellent purchase. Fluoroscopy was used to confirm placement. I then used the external fixation connectors and rods to span between the two sets of pins. I then pulled axial traction with slight flexion of the knee, also correcting coronal alignment and rotation. The bolts were then tightened. Fluoroscopy was then used to confirm alignment at the fracture. The pin sites were then dressed with Xeroform, sterile gauze, sterile Kerlix, and sterile Jason wrap. The patient was then awakened from anesthesia and transferred to the recovery room in stable condition. There were no complications. All needle and sponge counts were correct at the end of the case. ATTESTATION: I attest I was present and scrubbed and performed the critical portions of the procedure myself. POSTOPERATIVE PLAN: The plan is for elevation, icing, and [id number] of the extremity. The plan is for chemical DVT prophylaxis. We will plan to perform an open reduction and internal fixation of the fractures in a staged manner once soft tissue swelling has improved.
[2018-08-05] MEDS: Docusate CAP* 100 MG PO SCH ×2 (11:00→20:36)
[2018-08-05] MEDS: Multivitamins/Minerals TAB PO SCH (11:01)
[2018-08-05] MEDS: oxyCODONE TAB* 5 MG TAB PO PRN (11:01)
[2018-08-05] MEDS: Folic Acid TAB* 1 MG PO SCH (11:01)
[2018-08-05] MEDS: Thiamine TAB* 100 MG TAB PO SCH (11:01)
--- NOTE | 2018-08-05 15:28 | PN ---
Progress Note - Progress Note Date of Service: 08/05/18 SOAP: Subjective: [] Patient was seen at bedside s/p placement of external fixator for a left bicondylar tibial plateau fracture earlier today. His pain is much improved from his preoperative state and he has no complaints. Objective: []General: NAD LLE: External fixator in place. There is moderate swelling of the knee and proximal lower leg. All compartments of the left upper and lower leg are compressible and nontender to palpation. DP2+, capillary refill less than two seconds distally, sensation intact to light touch throughout the left foot. Flexion and extension of ankle and MTPs intact Assessment: []POD 0 s/p Placement of external fixator for a left bicondylar tibial plateau fracture Plan: []NWB LLE PT/OT lovenox 40 mg sq qd starting 08/06 at noon and hold for surgery 08/13 3 doses post op IV ancef. When complete will continue keflex until follow up ORIF planned for 08/13.
--- NOTE | 2018-08-05 15:32 | PN ---
Subjective Date of Service: 08/05/18 Interval History: Pt reports he is doing well and feels good post-op. Reports pain is controlled. no fever. Objective Active Medications: Acetaminophen (Tylenol Tab*) 650 mg PO Q6H PRN PRN Reason: pain/fever Last Admin: 08/03/18 21:38 Dose: 650 mg Cephalexin HCl (Keflex Cap*) 500 mg PO Q6H [facility] Docusate Sodium (Colace Cap*) 100 mg PO BID [facility] Last Admin: 08/05/18 11:00 Dose: 100 mg Enoxaparin Sodium (Lovenox(*)) 40 mg SUBCUT Q24H [facility] Folic Acid (Folvite Tab*) 1 mg PO DAILY [facility] Last Admin: 08/05/18 11:01 Dose: 1 mg Cefazolin Sodium 1 gm/ Sodium (Chloride) 50 mls @ 200 mls/hr IVPB Q8H [facility] Stop: 08/06/18 08:14 Lorazepam (Ativan Tab(*)) 0 - 6 mg PO .PER [place] PROTOCOL [facility]; Protocol Morphine Sulfate (Morphine Vial*) 4 mg IV Q4H PRN PRN Reason: PAIN Last Admin: 08/05/18 03:23 Dose: 4 mg Multivitamins/Minerals (Theragran/Minerals Tab*) 1 tab PO DAILY [facility] Last Admin: 08/05/18 11:01 Dose: 1 tab Oxycodone HCl (Roxycodone Tab*) 5 mg PO Q4H PRN PRN Reason: . Last Admin: 08/05/18 11:01 Dose: 5 mg Prochlorperazine Edisylate (Compazine Inj*) 5 mg IV Q6H PRN PRN Reason: NAUSEA/VOMITING Thiamine HCl (Vitamin B-1 Tab*) 100 mg PO DAILY [facility] Last Admin: 08/05/18 11:01 Dose: 100 mg Vital Signs - 8 hr 08/05/18 08/05/18 08/05/18 08:36 08:37 08:40 Temperature 98.6 F Pulse Rate 70 73 75 Respiratory 14 13 Rate Blood Pressure 111/77 112/70 (mmHg) O2 Sat by Pulse 98 98 97 Oximetry 08/05/18 08/05/18 08/05/18 08:45 08:50 08:55 Temperature Pulse Rate 68 68 79 Respiratory 13 14 14 Rate Blood Pressure 112/73 116/81 117/72 (mmHg) O2 Sat by Pulse 98 97 99 Oximetry 08/05/18 08/05/18 08/05/18 09:00 09:01 09:15 Temperature Pulse Rate 75 99 82 Respiratory 15 18 16 Rate Blood Pressure 130/80 116/71 (mmHg) O2 Sat by Pulse 99 94 95 Oximetry 08/05/18 08/05/18 08/05/18 09:30 10:10 10:20 Temperature 98.0 F Pulse Rate 68 103 Respiratory 14 16 16 Rate Blood Pressure 115/72 99/73 (mmHg) O2 Sat by Pulse 97 98 Oximetry 08/05/18 08/05/18 08/05/18 11:01 11:16 12:39 Temperature 97.9 F 97.5 F Pulse Rate 82 78 Respiratory 16 16 17 Rate Blood Pressure 100/59 101/66 (mmHg) O2 Sat by Pulse 99 99 Oximetry 08/05/18 14:42 Temperature 97.5 F Pulse Rate 84 Respiratory 16 Rate Blood Pressure 100/60 (mmHg) O2 Sat by Pulse 100 Oximetry Oxygen Devices in Use Now: Nasal Cannula Appearance: A+O x3 in NAD Eyes: No Scleral Icterus, PERRLA Neck: NL Appearance and Movements; NL JVP Respiratory: Symmetrical Chest Expansion and Respiratory Effort, Clear to Auscultation Cardiovascular: NL Sounds; No Murmurs; No JVD, RRR, No Edema Abdominal: NL Sounds; No Tenderness; No Distention Extremities: - - + sensation Skin: No Rash or Ulcers, No Nodules or Sclerosis Neurological: Alert and Oriented x 3 Lines/Tubes/Other Access: Clean, Dry and Intact Peripheral IV Nutrition: Taking PO's Result Diagrams: 08/05/18 05:57 08/05/18 05:57 Diagnostic Imaging: Patient Name: MISBAH TOMLINSON Medical Record#: [id number] Ordering Physician: Jane Gale MD Acct.#: [id number] : 1950 Age: 68 Sex: M Location: EMERGENCY DEPARTMENT Exam Date: 08/03/181139 ADM Status: REG ER Order Information: KNEE LEFT 1-2 VWS Accession Number: [id number] CPT: 57311 INDICATION: Left knee injury. TECHNIQUE: 2 views of the left knee were obtained. FINDINGS: There is diffuse soft tissue swelling. There is a moderate joint effusion present. There is a transverse comminuted intra-articular fracture of the tibial metaphysis with extension to the lateral articular surface. The fracture fragments are impacted and slightly distracted. There is also an oblique slightly displaced comminuted fracture of the proximal fibular metaphysis. IMPRESSION: 1. COMMINUTED DISPLACED INTRA-ARTICULAR FRACTURE OF THE PROXIMAL TIBIA. 2. OBLIQUE COMMINUTED SLIGHTLY DISPLACED FRACTURE OF THE PROXIMAL FIBULA. <Electronically signed by Kyle De Santiago MD in OV> 08/03/18 123 Dictated By: Kyle De Santiago MD Dictated Date/Time: 08/03/181238 Transcribed Date/Time: 08/03/181236 Copy to: Assess/Plan/Problems-Billing Assessment: This is a 68 year old male with no significant reported medical history that presented to the ED after falling off a ladder at work and sustaining a left comminuted tib-fib fracture. - Patient Problems (1) Tibia/fibula fracture Comment: - Dispo Orthopedics POD #0 - s/p placement of external fixator for a left bicondylar tibial plateau fracture - Pain control, bowel regimen - NWB, PT/OT eval - Per Ortho plan to take him back to the OR next (2) Alcohol use Comment: - Per patient, he drinks 2, 24 ounce beers daily, per this may be minimized - Continue WAM protocol and monitor for detox (3) Full code status (4) DVT prophylaxis Comment: - HSQ Status and Disposition: Inpatient. Discharge disposition to be determined.
[2018-08-05] MEDS: ceFAZolin 1 GM* X 3 DOSES POST-OP Q8H (AddVan) IVPB SCH ×2 (16:36)
[2018-08-06] MEDS: ceFAZolin 1 GM* X 3 DOSES POST-OP Q8H (AddVan) IVPB SCH ×4 (00:40→08:12)
[2018-08-06 07:06] LABS: ABS Basophils 0 10^3/ul (0-0.2); ABS Eosinophils 0.1 10^3/ul (0-0.6); ABS Monocytes 0.7 10^3/ul (0-0.8); ABS Neutrophils 4.7 10^3/ul (1.5-7.7); ABS Nucleated RBC 0 10^3/ul; Eosinophil % 2.1 % (0-6); Hematocrit 23 % (42-52); Hemoglobin 8.4 g/dl (14.0-18.0); Lymphocyte % 14.7 % (25-47); Mean Corpuscular HGB Conc 37 g/dl (31-36); Mean Corpuscular Hemoglobin 37 pg (27-31); Mean Corpuscular Volume 99 fL (80-94); Mean Platelet Volume 8.2 um3 (7.4-10.4); Nucleated Red Blood Cells % 0.1; Platelet Count 155 10^3/ul (150-450); Red Blood Count 2.28 10^6/ul (4.00-5.40); Red Cell Distribution Width 15 % (10.5-15); White Blood Count 6.5 10^3/ul (3.5-10.8)
[2018-08-06 07:45] LABS: EGFR Non-African American 111.5 (>60)
[2018-08-06] MEDS: Multivitamins/Minerals TAB PO SCH (08:15)
[2018-08-06] MEDS: Thiamine TAB* 100 MG TAB PO SCH (08:15)
[2018-08-06] MEDS: Folic Acid TAB* 1 MG PO SCH (08:15)
[2018-08-06] MEDS: oxyCODONE TAB* 5 MG TAB PO PRN ×2 (08:15→21:48)
[2018-08-06] MEDS: Docusate CAP* 100 MG PO SCH ×2 (08:15→20:30)
--- NOTE | 2018-08-06 11:40 | PN ---
Progress Note - Progress Note Date of Service: 08/06/18 SOAP: Subjective: []Patient seen and examined at bedside. He feels quite well this morning without complaints. His LLE pain is well controlled and denies any numbness or tingling. Denies chest pain, shortness of breath, dizziness, nausea. Objective: []General: Sitting comfortably in bed, NAD LLE: External fixator in place. Moderate swelling of the knee and proximal lower leg which has decreased slightly from yesterday, no erythema. All compartments of the left upper and lower leg are compressible and nontender to palpation. DP2+, capillary refill less than two seconds distally, sensation intact to light touch throughout the left foot. Flexion and extension of ankle and MTPs intact. Calves are supple and nontender. Assessment: []POD 1 s/p ex-fix placement for left bicondylar tibial plateau fracture Plan: []NWB LLE PT/OT Lovenox 40 mg sq qd starting 08/06 at noon and hold for surgery 08/13 When 3 doses post op IV ancef are complete start keflex until follow up ORIF planned for 08/13. I anticipate he will be discharged to home tomorrow as long as he meets PT goals and can ambulate safely Continue ice and elevation of the LLE. Vital Signs Temp 99.0 F 08/06/18 07:26 Pulse 81 08/06/18 07:26 Resp 18 08/06/18 10:06 BP 113/65 08/06/18 07:26 Pulse Ox 97 08/06/18 07:26 Intake & Output 08/05/18 08/06/18 08/06/18 18:59 06:59 18:59 Intake Total 1880 Output Total 350 800 450 Balance 1530 -800 -450 Intake: IV Fluids 950 LR 950 Oral 930 Output: Urine 350 800 450 Other: Estimated Void Large # Voids 3 Laboratory Last Values WBC 6.5 10^3/ul (3.5-10.8) 08/06/18 06:05 RBC 2.28 10^6/ul (4.00-5.40) L 08/06/18 06:05 Hgb 8.4 g/dl (14.0-18.0) L 08/06/18 06:05 Hct 23 % (42-52) L 08/06/18 06:05 MCV 99 fL (80-94) H 08/06/18 06:05 MCH 37 pg (27-31) H 08/06/18 06:05 MCHC 37 g/dl (31-36) H 08/06/18 06:05 RDW 15 % (10.5-15) 08/06/18 06:05 Plt Count 155 10^3/ul (150-450) 08/06/18 06:05 MPV 8.2 um3 (7.4-10.4) 08/06/18 06:05 Neut % (Auto) 72.5 % (38-83) 08/06/18 06:05 Lymph % (Auto) 14.7 % (25-47) L 08/06/18 06:05 [place] % (Auto) 10.5 % (0-7) H 08/06/18 06:05 Eos % (Auto) 2.1 % (0-6) 08/06/18 06:05 Baso % (Auto) 0.2 % (0-2) 08/06/18 06:05 Absolute Neuts (auto) 4.7 10^3/ul (1.5-7.7) 08/06/18 06:05 Absolute Lymphs (auto) 1.0 10^3/ul (1.0-4.8) 08/06/18 06:05 Absolute Monos (auto) 0.7 10^3/ul (0-0.8) 08/06/18 06:05 Absolute Eos (auto) 0.1 10^3/ul (0-0.6) 08/06/18 06:05 Absolute Basos (auto) 0 10^3/ul (0-0.2) 08/06/18 06:05 Absolute Nucleated RBC 0 10^3/ul 08/06/18 06:05 Nucleated RBC % 0.1 08/06/18 06:05 INR (Anticoag Therapy) 1.06 (0.77-1.02) H 08/05/18 05:57 APTT 27.6 seconds (26.0-36.3) 08/03/18 13:44 Sodium 138 mmol/L (135-145) 08/06/18 06:05 Potassium 4.2 mmol/L (3.5-5.0) 08/06/18 06:05 Chloride 107 mmol/L (101-111) 08/06/18 06:05 Carbon Dioxide 28 mmol/L (22-32) 08/06/18 06:05 Anion Gap 3 mmol/L (2-11) 08/06/18 06:05 BUN 15 mg/dL (6-24) 08/06/18 06:05 Creatinine 0.70 mg/dL (0.67-1.17) 08/06/18 06:05 Est GFR ( Amer) 134.9 (>60) 08/06/18 06:05 Est GFR (Non-Af Amer) 111.5 (>60) 08/06/18 06:05 BUN/Creatinine Ratio 21.4 (8-20) H 08/06/18 06:05 Glucose 99 mg/dL (70-100) 08/06/18 06:05 Calcium 8.4 mg/dL (8.6-10.3) L 08/06/18 06:05 Total Bilirubin 1.80 mg/dL (0.2-1.0) H 08/03/18 13:44 AST 24 U/L (13-39) 08/03/18 13:44 ALT 24 U/L (7-52) 08/03/18 13:44 Alkaline Phosphatase 59 U/L (34-104) 08/03/18 13:44 Total Protein 6.2 g/dL (6.4-8.9) L 08/03/18 13:44 Albumin 3.8 g/dL (3.2-5.2) 08/03/18 13:44 Globulin 2.4 g/dL (2-4) 08/03/18 13:44 Albumin/Globulin Ratio 1.6 (1-3) 08/03/18 13:44 Urine Color Yellow 08/03/18 13:41 Urine Appearance Clear 08/03/18 13:41 Urine pH 5.0 (5-9) 08/03/18 13:41 Ur Specific [place] 1.018 (1.010-1.030) 08/03/18 13:41 Urine Protein Negative (Negative) 08/03/18 13:41 Urine Ketones Negative (Negative) 08/03/18 13:41 Urine Blood Negative (Negative) 08/03/18 13:41 Urine Nitrate Negative (Negative) 08/03/18 13:41 Urine Bilirubin Negative (Negative) 08/03/18 13:41 Urine Urobilinogen Negative (Negative) 08/03/18 13:41 Ur Leukocyte Esterase Negative (Negative) 08/03/18 13:41 Urine Glucose Negative (Negative) 08/03/18 13:41 Blood Type O Negative 08/04/18 06:43 Antibody Screen Negative 08/04/18 06:43
[2018-08-06] MEDS: Enoxaparin(*) 40 MG/0.4 ML SYR SUBCUT SCH (11:44)
[2018-08-06] MEDS: Cephalexin CAP* 500 MG PO SCH ×2 (14:17→20:29)
--- NOTE | 2018-08-06 18:25 | PN ---
Subjective Date of Service: 08/06/18 Interval History: Patient seen and examined. States he is feeling well, had BM today. Pain in LLE well controlled. Remains NWB. Denies chest pain, no SOB, no fevers or chills. Objective Active Medications: Acetaminophen (Tylenol Tab*) 650 mg PO Q6H PRN PRN Reason: pain/fever Last Admin: 08/03/18 21:38 Dose: 650 mg Cephalexin HCl (Keflex Cap*) 500 mg PO Q6H [facility] Last Admin: 08/06/18 14:17 Dose: 500 mg Docusate Sodium (Colace Cap*) 100 mg PO BID [facility] Last Admin: 08/06/18 08:15 Dose: 100 mg Enoxaparin Sodium (Lovenox(*)) 40 mg SUBCUT Q24H [facility] Last Admin: 08/06/18 11:44 Dose: 40 mg Folic Acid (Folvite Tab*) 1 mg PO DAILY [facility] Last Admin: 08/06/18 08:15 Dose: 1 mg Lorazepam (Ativan Tab(*)) 0 - 6 mg PO .PER [facility] PROTOCOL [facility]; Protocol Morphine Sulfate (Morphine Vial*) 4 mg IV Q4H PRN PRN Reason: PAIN Last Admin: 08/05/18 03:23 Dose: 4 mg Multivitamins/Minerals (Theragran/Minerals Tab*) 1 tab PO DAILY [facility] Last Admin: 08/06/18 08:15 Dose: 1 tab Oxycodone HCl (Roxycodone Tab*) 5 mg PO Q4H PRN PRN Reason: . Last Admin: 08/06/18 08:15 Dose: 5 mg Prochlorperazine Edisylate (Compazine Inj*) 5 mg IV Q6H PRN PRN Reason: NAUSEA/VOMITING Thiamine HCl (Vitamin B-1 Tab*) 100 mg PO DAILY [facility] Last Admin: 08/06/18 08:15 Dose: 100 mg Vital Signs - 8 hr 08/06/18 08/06/18 11:25 15:13 Temperature 98.2 F 98.0 F Pulse Rate 88 82 Respiratory 14 16 Rate Blood Pressure 94/62 107/61 (mmHg) O2 Sat by Pulse 97 100 Oximetry Oxygen Devices in Use Now: None Appearance: alert, NAD Eyes: No Scleral Icterus, PERRLA Ears/Nose/Mouth/Throat: Clear Oropharnyx, Mucous Membranes Moist Neck: NL Appearance and Movements; NL JVP, Trachea Midline Respiratory: Symmetrical Chest Expansion and Respiratory Effort, Clear to Auscultation Cardiovascular: NL Sounds; No Murmurs; No JVD, RRR Abdominal: NL Sounds; No Tenderness; No Distention Extremities: No Clubbing, Cyanosis, - - RLE diffuse edema, good pulse Skin: No Rash or Ulcers Neurological: Alert and Oriented x 3, NL Sensation Nutrition: Taking PO's Result Diagrams: 08/06/18 06:05 08/06/18 06:05 Diagnostic Imaging: Patient Name: MISBAH TOMLINSON Medical Record#: [id number] Ordering Physician: Jane Gale MD Acct.#: [id number] : 1950 Age: 68 Sex: M Location: EMERGENCY DEPARTMENT Exam Date: 08/03/18 114 ADM Status: REG ER Order Information: KNEE LEFT 1-2 VWS Accession Number: [id number] CPT: 09448 INDICATION: Left knee injury. TECHNIQUE: 2 views of the left knee were obtained. FINDINGS: There is diffuse soft tissue swelling. There is a moderate joint effusion present. There is a transverse comminuted intra-articular fracture of the tibial metaphysis with extension to the lateral articular surface. The fracture fragments are impacted and slightly distracted. There is also an oblique slightly displaced comminuted fracture of the proximal fibular metaphysis. IMPRESSION: 1. COMMINUTED DISPLACED INTRA-ARTICULAR FRACTURE OF THE PROXIMAL TIBIA. 2. OBLIQUE COMMINUTED SLIGHTLY DISPLACED FRACTURE OF THE PROXIMAL FIBULA. <Electronically signed by Kyle De Santiago MD in OV> 08/03/18 1239 Dictated By: Kyle De Santiago MD Dictated Date/Time: 08/03/18 1239 Transcribed Date/Time: 08/03/181236 Copy to: Assess/Plan/Problems-Billing Assessment: This is a 68 year old male with no significant reported medical history that presented to the ED after falling off a ladder at work and sustaining a left comminuted tib-fib fracture. - Patient Problems (1) Tibia/fibula fracture Code(s): S82.209A - UNSP FRACTURE OF SHAFT OF UNSP TIBIA, INIT FOR CLOS FX; S82.409A - UNSP FRACTURE OF SHAFT OF UNSP FIBULA, INIT FOR CLOS FX SNOMED Code (s): 133749996 Comment: - POD1 ex-fix placement for left bicondylar tibial plateau fracture - POC as per orthopedics, DVT prophy, pain control, NWB - Plan to go back to OR if edema is improved for ORIF (2) EKG abnormality Code(s): R94.31 - ABNORMAL ELECTROCARDIOGRAM [ECG] [EKG] SNOMED Code(s): 374244294 Comment: - Resolved (3) Alcohol use Code(s): Z78.9 - OTHER SPECIFIED HEALTH STATUS SNOMED Code(s): 882222986 Comment: - DC WAM, no detox noted (4) DVT prophylaxis Code(s): GRI2276 - SNOMED Code(s): 977954703 Comment: - lovenox 40mg SQ daily (5) Full code status Code(s): Z78.9 - OTHER SPECIFIED HEALTH STATUS SNOMED Code(s): 902354110 Status and Disposition: Inpatient. Discharge disposition to be determined. Patient prepared to go home but this may not be feasible given home situation, NWB status and need for additional surgery. Patient lives 1.5 hours away and his has Parkinson's. Will seek assistance from CM if patient can go to rehab or Swing status.
[2018-08-07] MEDS: Cephalexin CAP* 500 MG PO SCH ×3 (01:55→14:31)
[2018-08-07] MEDS: oxyCODONE TAB* 5 MG TAB PO PRN ×3 (01:56→14:31)
[2018-08-07] MEDS: Folic Acid TAB* 1 MG PO SCH (07:41)
[2018-08-07] MEDS: Thiamine TAB* 100 MG TAB PO SCH (07:41)
[2018-08-07] MEDS: Multivitamins/Minerals TAB PO SCH (07:41)
[2018-08-07] MEDS: Docusate CAP* 100 MG PO SCH (07:41)
--- NOTE | 2018-08-07 11:43 | PN ---
Progress Note - Progress Note Date of Service: 08/07/18 SOAP: Subjective: []Patient seen at bedside with present. His pain is well tolerated. Waiting to hear if a rehab bed can be arranged vs discharge home. Objective: [] Vital Signs Temp 98.0 F 08/07/18 07:42 Pulse 64 08/07/18 07:42 Resp 18 08/07/18 09:44 BP 114/66 08/07/18 07:42 Pulse Ox 98 08/07/18 07:42 Intake & Output 08/06/18 08/07/18 08/07/18 18:59 06:59 18:59 Intake Total 600 800 480 Output Total 700 1350 200 Balance -100 -550 280 Intake: Oral 600 800 480 Output: Urine 700 1350 200 Other: Estimated Void Medium # Bowel Movements 0 Estimated Stool Amount Medium # Voids 1 Left LE moderate edema, knee region with some mild superficial ecchymosis. Moving ankle well without calf pain sensation intact 2+ DP pulse LLE Moderate bloody dressing on dressings around distal pin sites, new Kerlex and ROSEMARY applied, proximal pin sites dry, new dressings applied Assessment: []s/p external fixation left tibial plateau fracture POD #2 Plan: []NWB LLE Elevation and ICE LLE Dressing changes prn bloody drainage Definitive ORIF wih Dr. Bucrh next week if swelling improved May be discharged from Orthopedic standpoint to home or rehab with readmit for ORIF next 08/13/18.
[2018-08-07] MEDS: Enoxaparin(*) 40 MG/0.4 ML SYR SUBCUT SCH (11:59)
[2018-08-07 12:15] VITALS: BP 120/60
--- NOTE | 2018-08-08 05:16 | DS ---
CC: Dr. Webber; Dr. Gale; Dr. Ever Valladares; Dr. Ibrahim DISCHARGE SUMMARY: DATE OF ADMISSION: DATE OF DISCHARGE: 08/07/18 DISCHARGE DIAGNOSES: 1. Comminuted displaced intra-articular fracture of the proximal tibia, status post external fixation for left bicondylar tibial plateau fracture. 2. Oblique comminuted slightly displaced fracture of the proximal fibula. 3. Intraventricular conduction delay with flattening of T-waves, history of. No change from EKG done back in April. DISCHARGE MEDICATIONS: Are as follows: 1. Tylenol 650 mg p.o. q.6 p.r.n. 2. Cephalexin 500 mg p.o. q.6, dispensed 28 capsules, to last through . 3. Colace 200 mg p.o. daily. 4. Lovenox 40 mg subcu daily, given 5 Lovenox syringes. To stop the day before the patient is supposed to follow up with Surgery on for a repeat surgery. 5. Multivitamins 1 tab p.o. daily. 6. Oxycodone 5 mg p.o. q.4 p.r.n., 12 tabs dispensed with 0 refills. HISTORY OF PRESENT ILLNESS/HOSPITAL COURSE: The patient is a 68-year-old gentleman with history of COPD, who presented to the emergency room, brought in by EMS after sustaining a fall. 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 He then subsequently underwent an external fixation placement for left bicondylar tibial plateau fracture and given the significant swelling of his lower extremity, an ORIF is scheduled for next . Prior to his operation, he was also assessed by Dr. Ibrahim, given some abnormality in EKG, namely IVCD with T-wave flattening, which was also present from an EKG back done last April. He has done well perioperatively and he was advised to follow up and recall his PCP within 3 days post discharge and if his symptoms resume or develops new ones or feel unwell for any reason, he was advised to call his PCP first and if his PCP cannot entertain him due to scheduling issues alone, to call [facility] if the issue is considered nonemergent. If he needs more refills or controlled pain medications, he was advised to call his PCP and/or his surgeon's office. He was advised to call my office regarding any questions , concerns, or further clarifications regarding his discharge plans and/or prescriptions and to take his medications as prescribed. He was also advised by Orthopedics not to bear any weight on the left lower extremity, to keep his dressing over pin sites clean, and to continue taking Keflex 500 mg p.o. 4 times a day until followup surgery next on 08/13/18, and he was also given 5 days of Lovenox and with no Lovenox on prior to his planned ORIF on . REVIEW OF SYSTEMS: The patient currently denies any headache, dizziness, fevers , chills, nausea, vomiting, chest pain, shortness of breath, increased cough and /or sputum production, abdominal pain, diarrhea, constipation, pain and/or increased frequency in urination, myalgias, arthralgias, throat pain, or new skin lesions. The rest of the 14-point review of systems are otherwise unremarkable. PHYSICAL EXAMINATION: Shows the most recent vital signs of records with blood pressure of 120/60, 98 degrees Fahrenheit, 86 beats per minute heart rate, 16 per minute respiratory rate, saturating at 98% on room air. General Appearance : The patient is awake, alert, and oriented x3, not in acute distress. HEENT: Normocephalic, atraumatic. PERRLA. Extraocular muscles intact. Negative for icterus. Moist oral mucosa. Negative throat erythema. Neck is soft, supple, with no cervical lymphadenopathy, no JVD. Heart: S1, S2 within normal limits. Regular rate and rhythm. No murmurs, rubs, and gallops. Chest: Clear to auscultation bilaterally. Good air entry. No wheezes, rales, or rhonchi. Abdomen is soft, nondistended, nontender. Normoactive bowel sounds x4 quadrants. Extremities: No cyanosis, clubbing, with left lower extremity postoperative edema with CDI and external fixators in place. Psychiatric: No active psychosis, depression, or suicidal or homicidal ideations. Skin is warm to touch. TIME SPENT: The total time spent evaluating the patient, reviewing pertinent data, and appropriate documentation is 50 minutes. [id number]/[facility] #: [id number] [facility]
== END 2018-08-07 15:50 | disposition home health service (06) | DRG 309 ==
LOC: ED 10:52 → SSU 13:50
PROVIDERS: ADMIT Internal Medicine; ATTEND Student in an Organized Health Care Education/Training Program
PROC: 0QH Lower Bones, Insertion (ICD-10-PCS; principal; 2018-08-05 07:30)
DX: S82.142A Displaced bicondylar fracture of left tibia, initial encounter for closed fracture (principal); I45.89 Other specified conduction disorders; S82.452A Displaced comminuted fracture of shaft of left fibula, initial encounter for closed fracture; J44.9 Chronic obstructive pulmonary disease, unspecified; F17.210 Nicotine dependence, cigarettes, uncomplicated; Z96.651 Presence of right artificial knee joint; I44.7 Left bundle-branch block, unspecified; W11.XXXA Fall on and from ladder, initial encounter; R00.1 Bradycardia, unspecified; Y92.69 Other specified industrial and construction area as the place of occurrence of the external cause; Z72.89 Other problems related to lifestyle; Z23 Encounter for immunization; Z86.73 Personal history of transient ischemic attack (TIA), and cerebral infarction without residual deficits
CPT/HCPCS: 36415; 71045; 72190; 76001; 80048; 80053; 81003; 85025; 85610; 85730; 86850; 86900; 86901; 90686; 90732; 93005; 93306; 99284; A9270-GY; C1713; C1776; C8929; J0690; J1100; J1170; J1644; J1650; J1885; J2250; J2270; J2405; J2704; J3010; J3411

== ENCOUNTER 2018-08-13 09:54 | Inpatient (IN) | payer OTHER ==
[~2018-08-13 09:54] MED LIST: Buffered Lidocaine 0.9% SYRIN* 5 ML/SYR SYRINGE INTRADERM ONE; Dexamethasone IV* 4 MG/ML 1 ML (4 MG) IV SLOW PU ONE; Famotidine IV* 10 MG/ML 2 ML (20 mg) IV ONE
[2018-08-13] MEDS ORDERED: Dexamethasone IV* 4 MG/ML 1 ML (4 MG) ONE (10:14)
[2018-08-13] MEDS ORDERED: Famotidine IV* 10 MG/ML 2 ML (20 mg) ONE (10:14)
[2018-08-13] MEDS ORDERED: ceFAZolin 2 GM PREMIX in ORs 2 GM/50 ML BAG IVPB ONE (10:14)
[2018-08-13] MEDS ORDERED: Bupivacaine 0.5% SDV PF* 30ML VIAL ONE (13:01)
[2018-08-13] MEDS ORDERED: HYDROcodone/ACETAMIN 5-325 MG* 1 TAB PO PRN (13:10)
[2018-08-13] MEDS ORDERED: Naloxone* 0.4 MG/ML 1 ML VIAL IV PRN (13:10)
[2018-08-13] MEDS ORDERED: fentaNYL* 50 MCG/ML 2 ML VIAL (100 MCG VIAL) IV PRN (13:10)
[2018-08-13] MEDS ORDERED: DiMENhydriNATE IV* 50 MG/ML VIAL IV PUSH PRN (13:10)
[2018-08-13] MEDS ORDERED: oxyCODONE/Acetamin 5/325 MG* TAB PO PRN ×2 (13:10→15:49)
[2018-08-13] MEDS ORDERED: fentaNYL* 50 MCG/ML 2 ML VIAL (100 MCG VIAL) ONE ×3 (13:11→15:10)
[2018-08-13] MEDS ORDERED: Midazolam* 1 MG/ML 5 ML VIAL (5 MG) ONE (13:11)
[2018-08-13] MEDS ORDERED: EPHEDrine (Pressors)* 50 MG/ML VIAL ONE (13:41)
[2018-08-13] MEDS ORDERED: KETAMINE HCL* 50 MG/ML 10 ML VIAL ONE (14:11)
[2018-08-13] MEDS ORDERED: Ondansetron INJ* 2 MG/ML VIAL ONE (14:53)
[2018-08-13] MEDS ORDERED: Metoprolol Tartrate IV* 1 MG/ML 5 ML VIAL ONE (15:41)
[2018-08-13] MEDS ORDERED: Temazepam CAP* 15 MG PO PRN (15:49)
[2018-08-13] MEDS ORDERED: Magnesium Hydroxide LIQ* 30 ML UDC PO PRN (15:49)
[2018-08-13] MEDS ORDERED: diPHENhydraMINE IV* 50 MG/ML 1 ml VIAL (BENADRYL) IV PRN (15:49)
[2018-08-13] MEDS ORDERED: Ondansetron INJ* 2 MG/ML VIAL IV PRN (15:49)
--- NOTE | 2018-08-13 16:03 | OP ---
Operative Report - Blank - Operative Report Date of Operation: 08/13/18 Note: PATIENT: Pavan Jaramillo DATE OF : 1950 DATE OF SURGERY: 08/13/2018 SURGEON: Daniele Burch MD ACOUSTICAL INSTALLER: ANA Morel, whos assistance was necessary for positioning, retraction, help with instrumentation, and closure. ANESTHESIOLOGIST: Dr. Guerrero PREOPERATIVE DIAGNOSIS: Left bicondylar tibial plateau fracture in external fixation POSTOPERATIVE DIAGNOSIS: Left bicondylar tibial plateau fracture OPERATION: 1. Left bicondylar tibial plateau fracture open reduction and internal fixation 2. Removal of left lower extremity external fixator ANESTHESIA: GETA IMPLANTS: Synthes proximal tibia plate and screws TOURNIQUET TIME: Less than 2 hours with a well-padded thigh tourniquet SPECIMENS: none ESTIMATED BLOOD LOSS: minimal COMPLICATIONS: none STATUS: Stable from the operating room to the recovery room and then to the hospital floor. INDICATIONS FOR PROCEDURE: Pavan sustained a closed left bicondylar tibial plateau fracture. He was placed into an external fixator last week to allow for swelling reduction. Both operative and non operative treatment alternatives were reviewed. Further, the nature and risks of surgery were reviewed in careful detail. Our discussions regarding the risks of surgery included, but were not limited to, infection, wound problems, nerve injury, neuroma, RSD, persistent symptoms, blood clot, failure of the surgery, posttraumatic arthritis, malunion, nonunion, failure of the hardware or surgery, compartment syndrome, and even the remote chance of catastrophic complication, including loss of limb or . DESCRIPTION OF PROCEDURE: The patient was seen in the preoperative holding unit and informed written consent was obtained. The appropriate extremity was marked. The patient was then brought to the operating room and carefully positioned on the operating room table. Anesthesia was induced. All bony prominences were padded with great care. A well-padded thigh tourniquet was placed. A chlorhexidine based pre- scrub was performed followed by a Betadine prep and drape in standard sterile fashion. A surgical safety pause was then conducted in which we confirmed the appropriate patient, extremity, planned procedure, availability of equipment, indication and administration of prophylactic antibiotics, and DVT prophylaxis in the form of a compression boot on the non-surgical extremity. We began with an Esmarch exsanguination of the limb and inflated the tourniquet. An S-shaped longitudinal incision was made laterally at the knee and proximal tibia. I dissected down to the fascial layer. The tibialis anterior was then reflected posteriorly to expose the proximal lateral tibia. An arthrotomy was then made at the lateral joint line distal to the lateral meniscus. This provided visualization of the lateral plateau as well as the lateral meniscus. No meniscal tear was appreciated. A 2cm medial incision over the medial plateau was then made to aid in reduction. The two large plateau fragments were then reduced and held provisionally with a large reduction clamp and k-wires. A Synthes anatomic proximal tibia plate was then placed along the lateral proximal tibia. Fluoroscopy was used to confirm placement of the plate. I then placed the 3.5 mm screws into the plate and the provisional fixation was removed. Fluoroscopy confirmed maintained reduction of the fractures and satisfactory hardware placement. The meniscocapsular ligaments were then repaired to close the arthrotomy. The external fixator was then removed with a wrench and T-handle drivers' cash clerk. The ex -fix and pin tracts were curetted and irrigated. Final fluoroscopic images were then obtained. Both the medial and lateral wounds, as well as the ex-fix incisions, were copiously irrigated. The wounds were then closed in a layered fashion utilizing #1 Vicryl for the deep layer, 3- 0 Monocryl for the dermal layer, and skin norma for the skin. A sterile dressing was then applied, as well as a [place] brace with the knee locked in extension. The patient was then awakened from anesthesia and transferred to the recovery room in stable condition. There were no complications. All needle and sponge counts were correct at the end of the case. ATTESTATION: I attest I was present and scrubbed and performed the critical portions of the procedure myself. POSTOPERATIVE PLAN: The plan is to remain touch down weight-bearing for an anticipated duration of 2 months. Range of motion as tolerated with the [place] brace on. Otherwise, the [place] should be locked in extension. The plan is for chemical DVT prophylaxis for 6 weeks postoperatively. Follow-up in 2 weeks for likely staple removal.
[2018-08-13] MEDS: oxyCODONE/Acetamin 5/325 MG* TAB PO PRN ×2 (17:30→21:35)
[2018-08-13] MEDS: Acetaminophen TAB* 325 MG PO SCH (21:38)
[2018-08-13] MEDS: Ferrous Sulfate TAB* 325 MG PO SCH (21:39)
[2018-08-13] MEDS: Docusate CAP* 100 MG PO SCH (21:40)
[2018-08-13] MEDS: ceFAZolin 1 GM in Dextrose (*) 1 GM/50 ML BAG IVPB SCH (21:41)
[2018-08-14] MEDS: oxyCODONE/Acetamin 5/325 MG* TAB PO PRN ×5 (01:53→19:40)
[2018-08-14] MEDS: ceFAZolin 1 GM in Dextrose (*) 1 GM/50 ML BAG IVPB SCH ×2 (05:16→13:52)
[2018-08-14] MEDS: Acetaminophen TAB* 325 MG PO SCH ×3 (05:20→22:22)
[2018-08-14 06:28] LABS: Hematocrit 22 % (42-52); Hemoglobin 7.9 g/dl (14.0-18.0); Mean Platelet Volume 6.3 fL (7.4-10.4); Platelet Count 332 10^3/ul (150-450)
[2018-08-14 06:43] LABS: EGFR Non-African American 117.3 (>60)
[2018-08-14] MEDS: Ferrous Sulfate TAB* 325 MG PO SCH ×2 (10:11→21:22)
[2018-08-14] MEDS: Docusate CAP* 100 MG PO SCH ×2 (10:11→21:22)
[2018-08-14] MEDS: Vitamin THERAPEUTIC TAB PO SCH (10:11)
[2018-08-14] MEDS: Enoxaparin(*) 40 MG/0.4 ML SYR SUBCUT SCH (10:12)
--- NOTE | 2018-08-14 11:34 | PN ---
Progress Note - Progress Note Date of Service: 08/14/18 SOAP: Subjective: []Patient seen at bedside, ready to work with PT and get OOB. Having moderate knee pain, especially when leg moved. Denies SOB, CP, dizziness, Objective: [] Vital Signs Temp 98.4 F 08/14/18 07:56 Pulse 66 08/14/18 07:56 Resp 24 08/14/18 10:11 BP 99/62 08/14/18 07:56 Pulse Ox 97 08/14/18 07:56 Intake & Output 08/13/18 08/14/18 08/14/18 18:59 06:59 18:59 Intake Total 1500 1035 480 Output Total 450 1150 550 Balance 1050 -115 -70 Weight 137 lb Intake: IV Fluids 1500 LR 1500 IVPB 55 ABX - CEFAZOLIN 55 Oral 980 480 Output: Urine 400 1150 550 Estimated Blood Loss 50 Laboratory Results - last 24 hr 08/14/18 08/14/18 06:12 06:12 Hgb 7.9 L Hct 22 L Plt Count 332 MPV 6.3 L Sodium 135 Potassium 4.1 Chloride 103 Carbon Dioxide 25 Anion Gap 7 BUN 14 Creatinine 0.67 Est GFR ( Amer) 141.9 Est GFR (Non-Af Amer) 117.3 BUN/Creatinine Ratio 20.9 H Glucose 106 H Calcium 8.1 L Left LE brace donned, dressings dry and intact +DF/PF left ankle sensation and circulation intact distally Assessment: []s/p removal of ex- fix, ORIF tibial plateau fracture POD #1 Plan: []PT/OT NWB LLE Brace for support Dressing change in 1-[address] Burch Lovenox 40 mg q 24 hrs- DVT prophylaxis monitor H&H Home when safe with PT, pain managed and VNS set up
[2018-08-14] MEDS: Morphine VIAL* 4 MG/ML VIAL (1 ml vial) IV PRN (14:35)
--- NOTE | 2018-08-14 18:22 | PN ---
Progress Note - Progress Note Date of Service: 08/14/18 Note: I saw Pavan. Pain worse since surgery but manageable. Has been OOB to chair and also for BM. Pain improving. No N/T. Comfortable in bed now. Painless ankle and toe ROM and passive stretch. Dressing c/d/i. Palpable DP pulse. SILT foot. Brace on. Continue daily lovenox, SCD on RLE. TTWB/NWB LLE. Knee ROM ok with PT. Pain control. Diet as tolerated. Daniele Burch MD
[2018-08-15] MEDS: Morphine VIAL* 4 MG/ML VIAL (1 ml vial) IV PRN ×2 (00:10→12:57)
[2018-08-15] MEDS: oxyCODONE/Acetamin 5/325 MG* TAB PO PRN ×6 (02:04→23:16)
[2018-08-15 05:53] LABS: Hematocrit 23 % (42-52); Hemoglobin 8.4 g/dl (14.0-18.0); Mean Platelet Volume 6.4 fL (7.4-10.4); Platelet Count 327 10^3/ul (150-450)
[2018-08-15] MEDS: Acetaminophen TAB* 325 MG PO SCH ×3 (06:06→22:25)
[2018-08-15] MEDS: Docusate CAP* 100 MG PO SCH ×2 (08:54→22:25)
[2018-08-15] MEDS: Enoxaparin(*) 40 MG/0.4 ML SYR SUBCUT SCH (08:54)
[2018-08-15] MEDS: Vitamin THERAPEUTIC TAB PO SCH (08:54)
[2018-08-15] MEDS: Ferrous Sulfate TAB* 325 MG PO SCH ×2 (08:54→22:25)
--- NOTE | 2018-08-15 09:43 | PN ---
Progress Note - Progress Note Date of Service: 08/15/18 SOAP: Subjective: POD #2 Left tibial plateau ORIF. Doing ok, pain controlled with meds. Denies CP/ SOB, f/c, n/v Objective: Vitals: Temp Pulse Resp BP Pulse Ox 98.0 F 62 16 109/59 98 08/15/18 04:23 08/15/18 04:23 08/15/18 08:59 08/15/18 04:23 08/15/18 04:23 Gen: A&Ox3, NAD at rest sitting in bed LLE: Dressing C/D/I. +f/e at ankle and MTPs, N/V intact Labs: Laboratory Results - last 24 hr 08/15/18 05:12 Hgb 8.4 L Hct 23 L Plt Count 327 MPV 6.4 L Assessment: POD #2 Left tibial plateau ORIF Plan: Awaiting home care to be set up Likely d/c tomorrow or Friday Cont PT/OT, toe touch WB LLE with walker and brace locked in extension. OK for passive ROM at knee Cont Lovenox for DVT ppx
[2018-08-16] MEDS: oxyCODONE/Acetamin 5/325 MG* TAB PO PRN ×5 (03:33→21:00)
[2018-08-16] MEDS: Acetaminophen TAB* 325 MG PO SCH ×3 (05:34→21:27)
[2018-08-16 06:13] LABS: Hematocrit 24 % (42-52); Hemoglobin 8.8 g/dl (14.0-18.0); Mean Platelet Volume 6.3 fL (7.4-10.4); Platelet Count 370 10^3/ul (150-450)
[2018-08-16] MEDS: Vitamin THERAPEUTIC TAB PO SCH (08:16)
[2018-08-16] MEDS: Enoxaparin(*) 40 MG/0.4 ML SYR SUBCUT SCH (08:16)
[2018-08-16] MEDS: Docusate CAP* 100 MG PO SCH ×2 (08:16→21:01)
[2018-08-16] MEDS: Ferrous Sulfate TAB* 325 MG PO SCH ×2 (08:16→21:01)
--- NOTE | 2018-08-16 11:03 | PN ---
Progress Note - Progress Note Date of Service: 08/16/18 Note: I evaluated Pavan this morning. He reports that the pain is much better. He was able to walk to the nurse's station with the walker, and does ensure me that he remained toe-touch weightbearing throughout. He has not tried any knee range of motion yet. He has been working on ankle and toe pumps. He reports a daily bowel movement. On exam, his dressing is clean, dry, and intact. The brace is well fitting. He is flexing and extending his toes and ankle without any pain. The foot is warm and well-perfused with good pulses. Sensation is intact to light touch. His hematocrit is 24. Pavan is doing well 3 days after a left bicondylar tibial plateau ORIF. He will remain toe-touch weightbearing in the left lower extremity. He can work on gentle knee range of motion with physical therapy. Daily Lovenox for DVT prophylaxis. Likely DC home tomorrow. Daniele Burch MD
[2018-08-17] MEDS: oxyCODONE/Acetamin 5/325 MG* TAB PO PRN ×3 (01:01→09:09)
[2018-08-17] MEDS: Acetaminophen TAB* 325 MG PO SCH (05:00)
[2018-08-17 05:10] LABS: Hematocrit 25 % (42-52); Hemoglobin 8.7 g/dl (14.0-18.0); Mean Platelet Volume 6.3 fL (7.4-10.4); Platelet Count 376 10^3/ul (150-450)
[2018-08-17] MEDS: Docusate CAP* 100 MG PO SCH (07:54)
[2018-08-17] MEDS: Enoxaparin(*) 40 MG/0.4 ML SYR SUBCUT SCH (07:54)
[2018-08-17] MEDS: Vitamin THERAPEUTIC TAB PO SCH (07:54)
[2018-08-17] MEDS: Ferrous Sulfate TAB* 325 MG PO SCH (07:54)
[2018-08-17 08:09] VITALS: BP 111/71
--- NOTE | 2018-08-17 11:44 | PN ---
Progress Note - Progress Note Date of Service: 08/17/18 SOAP: Subjective: POD #4 left tibial plateau ORIF. Doing well, pain improving. Denies CP/SOB, f/c , n/v Objective: Vitals: Temp Pulse Resp BP Pulse Ox 98.1 F 55 18 111/71 97 08/17/18 07:55 1118 07:55 1118 09:09 08/17/18 07:55 08/17/18 07:57 Gen: A&Ox3, NAD at rest sitting in bed LLE: Incisions C/D/I. Mild edema through lower leg, no erythema. +f/e at ankle and MTPs. N/V intact, calf soft, NT Labs: Laboratory Results - last 24 hr 08/17/18 04:56 Hgb 8.7 L Hct 25 L Plt Count 376 MPV 6.3 L Assessment: POD #4 left tibial plateau ORIF Plan: D/C home today Homecare to see pt Wed with home PT services Toe touch WB LLE with brace locked in extension, ok to unlock for ROM only Cont Lovenox for DVT ppx F/u with Dr. Burch 10-14 days post op
== END 2018-08-17 12:20 | disposition home health service (06) | DRG 313 ==
LOC: AA 09:54 → SSU 15:49
PROVIDERS: ADMIT Orthopaedic Surgery; ATTEND Orthopaedic Surgery
PROC: 0QPHX5Z Removal of External Fixation Device from Left Tibia, External Approach (ICD-10-PCS; 2018-08-13)
PROC: 0QSH04Z Reposition Left Tibia with Internal Fixation Device, Open Approach (ICD-10-PCS; principal; 2018-08-13 12:30)
DX: S82.142A Displaced bicondylar fracture of left tibia, initial encounter for closed fracture (principal); Z96.651 Presence of right artificial knee joint; J44.9 Chronic obstructive pulmonary disease, unspecified; D58.0 Hereditary spherocytosis; H91.93 Unspecified hearing loss, bilateral; G89.29 Other chronic pain; M25.562 Pain in left knee; M25.561 Pain in right knee; D64.9 Anemia, unspecified; H54.8 Legal blindness, as defined in USA; M19.90 Unspecified osteoarthritis, unspecified site; F32.9 Major depressive disorder, single episode, unspecified; X58.XXXA Exposure to other specified factors, initial encounter; Y92.9 Unspecified place or not applicable; Z87.891 Personal history of nicotine dependence; Z86.010 Personal history of colon polyps; Z87.820 Personal history of traumatic brain injury; Z72.89 Other problems related to lifestyle
CPT/HCPCS: 36415; 76001; 80048; 85014; 85018; 85049; 88300; A9270-GY; C1713; C1776; G8978-GP-CL; G8978-GP-CM; G8979-GP-CJ; G8979-GP-CK; G8987-GO-CK; G8988-GO-CI; J0690; J1100; J1650; J2250; J2270; J2405; J3010; J3490